=== PATIENT | male | born 1960 | race Caucasian/White ===

== ENCOUNTER → 2019-06-19 | Outpatient (CLI) | payer BC ==
--- NOTE | 2019-06-19 20:07 | EST ---
EXERCISE STRESS DATE OF SERVICE: 06/19/2019 AGE: 59 SEX: Male. HT: 70 WT: 210 PROTOCOL: Jarrell STAGE: 3 DURATION OF EXERCISE: 7:00 HEART RATE REST: 75 BLOOD PRESSURE REST: 143/102 MAXIMUM HEART RATE ACHIEVED: 147 MAXIMUM BLOOD PRESSURE: 208/74 85% MPHR: 139 100% MPHR: 163 METS: 8.5 INDICATIONS: CAD CLINICAL INFORMATION: Baseline EKG revealed normal sinus rhythm without significant ST-T changes. Patient walked on standard Jarrell protocol for 7 minutes and achieved a maximal heart rate of 147 beats per minute, which is more than 85% of predicted maximal. Peak blood pressure was 208/74. EKG did not reveal any ST-segment changes to indicate ischemia. There was no angina or arrhythmia. By EKG criteria, this is a negative stress test with fair exercise capacity. MMODL / IJN: [id number] /
== END ==
LOC: RADNMMAIN 10:36
PROVIDERS: ATTEND Nuclear Medicine Nuclear Cardiology
DX: I25.10 Atherosclerotic heart disease of native coronary artery without angina pectoris (principal)
CPT/HCPCS: 93017

== ENCOUNTER 2021-10-22 15:29 | Inpatient (IN) | payer BC, OTHER ==
--- NOTE | 2021-10-22 16:06 | ED ---
General Adult HPI - General Chief complaint: Shortness of Breath Stated complaint: SOB Time Seen by Provider: 10/22/21 15:35 Source: patient Mode of arrival: EMS Limitations: no limitations - History of Present Illness Initial comments: Dictation was produced using [employer] dictation software. please excuse any grammatical, word or spelling errors. Chief Complaint: 61-year-old male past medical history of coronary artery disease presents to the emergency Department for hypoxia and covid symptoms History of Present Illness: Patient is a 61-year-old nice has past medical history of hypertension and heart attack. Patient states that he's been symptomatically with URI symptoms and anosmia for approximately one week. Patient went to the urgent care today for Covid test phthisis symptoms have been progressively worsening. He was found to be hypoxic in the 80 percents at the urgent care. He was sent to the emergency department. Patient is not vaccinated. He does have symptoms of weakness myalgias and fatigue. The ROS documented in this emergency department record has been reviewed and confirmed by me. Those systems with pertinent positive or negative responses have been documented in the HPI. All other systems are other negative and/or noncontributory. PHYSICAL EXAM: General Impression: Alert and oriented x3, not in acute distress HEENT: Normocephalic atraumatic, extra-ocular movements intact, pupils equal and reactive to light bilaterally, mucous membranes moist. Cardiovascular: Heart regular rate and rhythm Chest: Able to complete full sentences, no retractions, no tachypnea Abdomen: abdomen soft, non-tender, non-distended, no organomegaly Musculoskeletal: Pulses present and equal in all extremities, no peripheral edema Motor: no focal deficits noted Neurological: CN II-XII grossly intact, no focal motor or sensory deficits noted Skin: Intact with no visualized rashes Psych: Normal affect and mood ED course: 61-year-old male presents to the emergency department for hypoxia. He has classical symptoms for Covid 19. Vital signs upon arrival shows 91% on room air, temperature of 99.7, rest of vital signs within acceptable limits. Patient's well-appearing at the bedside. Laboratory evaluation obtained. CBC unremarkable. Coag panel is negative. D- dimer 0.8. Metabolic panel shows sodium 128. Bicarb of 20. Rest of labs within acceptable limits. Patient is positive for COVID-19. Chest x-ray shows bilateral multifocal pneumonia consistent with COVID-19. Patient hypoxic at the bedside into the mid to low 80s. he is placed on nasal cannula. Patient given 10 mg of IV Decadron. He'll be admitted with consultation to pulmonology. - Related Data Home Medications Medication Instructions Recorded Confirmed Aspirin EC [Ecotrin Low Dose] 81 mg PO HS 10/22/21 10/22/21 Multivitamins, Thera [Multivitamin 1 tab PO HS 10/22/21 10/22/21 (formulary)] Rosuvastatin [Crestor] 20 mg PO HS 10/22/21 10/22/21 atenoloL [Tenormin] 25 mg PO HS 10/22/21 10/22/21 Allergies Allergy/AdvReac Type Severity Reaction Status Date / Time iodine Allergy Unknown Verified 10/22/21 17:04 Penicillins Allergy Unknown Verified 10/22/21 17:04 Review of Systems ROS Statement: Those systems with pertinent positive or pertinent negative responses have been documented in the HPI. ROS Other: All systems not noted in ROS Statement are negative. Past Medical History Past Medical History: Hypertension, Myocardial Infarction ([place]) History of Any Multi-Drug Resistant Organisms: None Reported Past Surgical History: Heart Catheterization With Stent Past Psychological History: No Psychological Hx Reported Smoking Status: Never smoker Past Alcohol Use History: None Reported Past Drug Use History: None Reported General Exam Limitations: no limitations Course Vital Signs 10/22/21 10/22/21 10/22/21 15:31 15:35 16:10 Temperature 99.7 F H Pulse Rate 94 84 Respiratory 16 16 16 Rate Blood Pressure 120/82 109/66 O2 Sat by Pulse 91 L 89 L Oximetry Medical Decision Making - Lab Data Result diagrams: 10/22/21 16:07 10/22/21 16:07 Lab Results 10/22/21 10/22/21 10/22/21 Range/Units 16:07 16:07 16:07 WBC 10.4 (3.8-10.6) k/uL RBC 4.57 (4.30-5.90) m/uL Hgb 13.5 (13.0-17.5) gm/dL Hct 38.0 L (39.0-53.0) % MCV 83.0 (80.0-100.0) fL MCH 29.5 (25.0-35.0) pg MCHC 35.6 (31.0-37.0) g/dL RDW 12.3 (11.5-15.5) % Plt Count 204 (150-450) k/uL MPV 8.2 Neutrophils % 74 % Lymphocytes % 21 % Monocytes % 3 % Eosinophils % 0 % Basophils % 0 % Neutrophils # 7.7 (1.3-7.7) k/uL Lymphocytes # 2.2 (1.0-4.8) k/uL Monocytes # 0.3 (0-1.0) k/uL Eosinophils # 0.0 (0-0.7) k/uL Basophils # 0.0 (0-0.2) k/uL PT 10.4 (9.0-12.0) sec INR 1.0 (<1.2) APTT 22.3 (22.0-30.0) sec D-Dimer 0.80 H (<0.60) mg/L FEU Sodium (137-145) mmol/L Potassium (3.5-5.1) mmol/L Chloride (98-107) mmol/L Carbon Dioxide (22-30) mmol/L Anion Gap mmol/L BUN (9-20) mg/dL Creatinine (0.66-1.25) mg/dL Est GFR (CKD-EPI)AfAm (>60 ml/min/1.73 sqM) Est GFR (CKD-EPI)NonAf (>60 ml/min/1.73 sqM) Glucose (74-99) mg/dL Calcium (8.4-10.2) mg/dL Magnesium (1.6-2.3) mg/dL C-Reactive Protein (<1.0) mg/dL Coronavirus (PCR) Detected A (Not Detectd) 10/22/21 Range/Units 16:07 WBC (3.8-10.6) k/uL RBC (4.30-5.90) m/uL Hgb (13.0-17.5) gm/dL Hct (39.0-53.0) % MCV (80.0-100.0) fL MCH (25.0-35.0) pg MCHC (31.0-37.0) g/dL RDW (11.5-15.5) % Plt Count (150-450) k/uL MPV Neutrophils % % Lymphocytes % % Monocytes % % Eosinophils % % Basophils % % Neutrophils # (1.3-7.7) k/uL Lymphocytes # (1.0-4.8) k/uL Monocytes # (0-1.0) k/uL Eosinophils # (0-0.7) k/uL Basophils # (0-0.2) k/uL PT (9.0-12.0) sec INR (<1.2) APTT (22.0-30.0) sec D-Dimer (<0.60) mg/L FEU Sodium 128 L (137-145) mmol/L Potassium 3.5 (3.5-5.1) mmol/L Chloride 99 (98-107) mmol/L Carbon Dioxide 20 L (22-30) mmol/L Anion Gap 9 mmol/L BUN 19 (9-20) mg/dL Creatinine 0.87 (0.66-1.25) mg/dL Est GFR (CKD-EPI)AfAm >90 (>60 ml/min/1.73 sqM) Est GFR (CKD-EPI)NonAf >90 (>60 ml/min/1.73 sqM) Glucose 128 H (74-99) mg/dL Calcium 8.0 L (8.4-10.2) mg/dL Magnesium 2.4 H (1.6-2.3) mg/dL C-Reactive Protein 7.5 H (<1.0) mg/dL Coronavirus (PCR) (Not Detectd) Disposition Clinical Impression: COVID-19 Disposition: ADMITTED IP TO THIS HOSP Condition: Fair Referrals: Collin Hughes MD [Primary Care Provider] - 1-2 days
[2021-10-22 16:17] LABS: Basophils % (A) 0 %; Eosinophils % (A) 0 %; HGB 13.5 gm/dL (13.0-17.5); Lymphocytes # (A) 2.2 k/uL (1.0-4.8); Lymphocytes % (A) 21 %; MCH 29.5 pg (25.0-35.0); MCHC 35.6 g/dL (31.0-37.0); Mean Platelet Volume 8.2; Monocytes # (A) 0.3 k/uL (0-1.0); Monocytes % (A) 3 %; Neutrophils # (A) 7.7 k/uL (1.3-7.7); Neutrophils % (A) 74 %; Platelet Count 204 k/uL (150-450); RBC 4.57 m/uL (4.30-5.90); RDW 12.3 % (11.5-15.5); WBC 10.4 k/uL (3.8-10.6)
--- NOTE | 2021-10-22 16:23 | XR ---
EXAMINATION TYPE: XR chest 1V portable DATE OF EXAM: 10/22/2021 COMPARISON: NONE HISTORY: Fever. Shortness of breath. Loss of taste and smell. TECHNIQUE: Single AP portable frontal upright view of the chest is obtained. FINDINGS: There are bilateral multifocal peripheral increased opacities. Somewhat low lung volumes. The cardiac silhouette size is mildly enlarged. The osseous structures are intact. Overlying EKG le ads. IMPRESSION: Bilateral multifocal predominantly peripheral opacities consistent with covid-19 infecti on.
[2021-10-22 16:33] LABS: African American GFR (CKD) >90 (>60 ml/min/1.73 sqM); Anion Gap 9 mmol/L; Blood Urea Nitrogen 19 mg/dL (9-20); C Reactive Protein 7.5 mg/dL (<1.0); Carbon Dioxide 20 mmol/L (22-30); Chloride 99 mmol/L (98-107); Glucose 128 mg/dL (74-99); Magnesium 2.4 mg/dL (1.6-2.3); Non-African American GFR(CKD) >90 (>60 ml/min/1.73 sqM); Potassium 3.5 mmol/L (3.5-5.1); Sodium 128 mmol/L (137-145)
[2021-10-22] MEDS ORDERED: SODIUM CHLORIDE 0.9% 500 ML 500 ML IV STA (17:05)
[2021-10-22 17:07] LABS: Partial Thromboplastin Time 22.3 sec (22.0-30.0); Prothrombin Time 10.4 sec (9.0-12.0)
[2021-10-22] MEDS ORDERED: DEXAMETHASONE SOD PHOSPHATE 10 MG/ML 1 ML VIAL IV STA (17:17)
[2021-10-22] MEDS ORDERED: ONDANSETRON 4 MG/2 ML VIAL IVP PRN (17:19)
[2021-10-22] MEDS ORDERED: NALOXONE 0.4 MG/ML 1 ML VIAL IV PRN (17:19)
[2021-10-22] MEDS ORDERED: ACETAMINOPHEN TAB 325 MG TAB PO PRN (17:19)
[2021-10-22] MEDS ORDERED: REMDESIVIR 200 MG in SODIUM CHLORIDE 0.9% 250 ML IVPB ONE (19:00)
--- NOTE | 2021-10-22 19:43 | P.CNPUL ---
History of Present Illness Consult date: 10/22/21 Reason for consult: dyspnea, pneumonia History of present illness: 61-year-old male patient is currently hospitalized for COVID 19 related pneumo kimber. The patient initially developed symptoms of URI and he lost his smell approximately a week ago. He went to an urgent care any tested positive. His symptoms progressively got worse especially the respiratory symptoms and the patient was found to be hypoxic in the emergency department with an initial pulse ox in the 80s. He was placed on oxygen. This is vaccinated individual. At the same time, the patient was complaining of generalized weakness and fatigue and myalgias and tiredness and diminished appetite. In the emergency, the patient's vitals were stable. He was hypoxic. He was placed on oxygen. The blood work showed a sodium level of 128, serum bicarb was 20, chloride was 99, creatinine was 0.8, glucose was 138, illness count is 10.4, hemoglobin is at 15.5, his electrolytes showed a potassium level of 3.5, calcium was 8.0, his d- dimer was 0.8, inflammatory markers are still pending for now. [place] was attempted 0.4. Chest x-ray revealed bilateral pulmonary infiltrates consistent with COVID 19 infection. The patient is currently on IV fluids of normal saline at the rate of 75 mL's an hour. He was given Decadron. He will be started also on Lovenox for DVT prophylaxis. Milligrams subcu daily basis. Review of Systems Constitutional: Reports fatigue, Reports weakness Eyes: denies as per HPI, denies blurred vision, denies bulging eye, denies decreased vision, denies diplopia, denies discharge, denies dry eye, denies irritation, denies itching, denies pain, denies photophobia, denies loss of p eripheral vision, denies loss of vision, denies tunnel vision/blind spots Ears: deny: decreased hearing, ear discharge, earache, tinnitus Ears, nose, mouth and throat: Reports as per HPI Breasts: absent: as per HPI, gynecomastia Cardiovascular: Reports decreased exercise tolerance, Reports dyspnea on exertion Respiratory: Reports cough, Reports dyspnea Gastrointestinal: Reports as per HPI, Reports loss of appetite Genitourinary: Reports as per HPI Musculoskeletal: Reports as per HPI Musculoskeletal: absent: ankle pain, ankle stiffness, ankle swelling, as per HPI, elbow pain, elbow stiffness, elbow swelling, foot pain, foot stiffness, foot swelling, hand pain, hand stiffness, hand swelling, hip pain, hip stiffness, hip swelling, knee pain, knee stiffness, knee swelling, shoulder pain, shoulder stiffness, shoulder swelling, wrist pain, wrist stiffness, wrist swelling Integumentary: Reports as per HPI Neurological: Reports as per HPI, Reports change in smell/taste Psychiatric: Reports as per HPI Endocrine: Reports as per HPI Hematologic/Lymphatic: Reports as per HPI Allergic/Immunologic: Reports as per HPI Past Medical History Past Medical History: Hypertension, Myocardial Infarction ([place]) History of Any Multi-Drug Resistant Organisms: None Reported Past Surgical History: Heart Catheterization With Stent Past Psychological History: No Psychological Hx Reported Smoking Status: Never smoker Past Alcohol Use History: None Reported Past Drug Use History: None Reported Medications and Allergies Home Medications Medication Instructions Recorded Confirmed Type Aspirin EC [Ecotrin Low Dose] 81 mg PO HS 10/22/21 10/22/21 History Multivitamins, Thera [Multivitamin 1 tab PO HS 10/22/21 10/22/21 History (formulary)] Rosuvastatin [Crestor] 20 mg PO HS 10/22/21 10/22/21 History atenoloL [Tenormin] 25 mg PO HS 10/22/21 10/22/21 History Allergies Allergy/AdvReac Type Severity Reaction Status Date / Time iodine Allergy Unknown Verified 10/22/21 17:04 Penicillins Allergy Unknown Verified 10/22/21 17:04 Physical Exam Vitals: Vital Signs Temp Pulse Resp BP Pulse Ox 10/22/21 16:10 84 16 109/66 89 L 10/22/21 15:35 16 91 L 10/22/21 15:31 99.7 F H 94 16 120/82 Intake and Output 10/22/21 10/22/21 10/22/21 06:59 14:59 22:59 Other: Weight 92.079 kg General Impression: Alert and oriented x3, not in acute distress, pulse ox is 89% on room in oxygen and patient will be placed on 2 L about 2 by nasal cannula HEENT: Normocephalic atraumatic, extra-ocular movements intact, pupils equal and reactive to light bilaterally, mucous membranes moist. Cardiovascular: Heart regular rate and rhythm Chest: Able to complete full sentences, no retractions, no tachypnea, limited crack in lung bases bilaterally Abdomen: abdomen soft, non-tender, non-distended, no organomegaly Musculoskeletal: Pulses present and equal in all extremities, no peripheral edema Motor: no focal deficits noted Neurological: CN II-XII grossly intact, no focal motor or sensory deficits noted Skin: Intact with no visualized rashes Psych: Normal affect and mood Results - Laboratory Findings CBC and BMP: 10/22/21 16:07 10/22/21 16:07 PT/INR, D-dimer PT 10.4 sec (9.0-12.0) 10/22/21 16:07 INR 1.0 (<1.2) 10/22/21 16:07 D-Dimer 0.80 mg/L FEU (<0.60) H 10/22/21 16:07 Abnormal lab findings: Abnormal Labs 10/22/21 10/22/21 10/22/21 16:07 16:07 16:07 Hct 38.0 L D-Dimer 0.80 H Sodium Carbon Dioxide Glucose Calcium Magnesium C-Reactive Protein Coronavirus (PCR) Detected A 10/22/21 16:07 Hct D-Dimer Sodium 128 L Carbon Dioxide 20 L Glucose 128 H Calcium 8.0 L Magnesium 2.4 H C-Reactive Protein 7.5 H Coronavirus (PCR) - Diagnostic Findings Chest x-ray: image reviewed Assessment and Plan Plan: 1 acute COVID 19 related pneumonia with secondary shortness of breath, symptoms started approximately 7 days ago and the patient is an progressively getting worse. Presented to the hospital because of generalized constitutional symptoms and hypoxemia. 2 acute hypoxic respiratory failure and the patient has limited infiltration bilaterally consistent with COVID 19 related pneumonia 3 shortness of breath secondary to above 4 hypovolemic hyponatremia secondary to above 5 history of coronary artery disease currently inactive in stable 6 hyperlipidemia maintained on Crestor no patient basis Plan Titrate oxygen flow to maintain a saturation above 90% Start the patient on Decadron 6 mg IV every 24 hours Remdesivir per protocol Start the patient on Lovenox 40 milligrams subcu for DVT prophylaxis Check inflammatory markers including of this year. Pro-calcitonin level Multivitamins including vitamin C and vitamin E and zinc Resume all medications Chest x-ray was reviewed D-dimer is low We'll continue to follow
[2021-10-22] MEDS: ENOXAPARIN 40 MG/0.4 ML SYRINGE SQ SCH (19:49)
[2021-10-22] MEDS: SODIUM CHLORIDE 0.9% 1,000 ML IV SCH (19:50)
[2021-10-22] MEDS: dexAMETHasone 2 MG TAB PO SCH ×2 (19:50)
[2021-10-22] MEDS: CHOLECALCIFEROL 25 MCG (1000 IU) TABLET PO SCH (19:50)
[2021-10-22] MEDS: ZINC SULFATE 220 MG CAP PO SCH (19:50)
[2021-10-23] MEDS: ATORVASTATIN 40 MG TAB PO SCH ×2 (00:04→20:17)
[2021-10-23] MEDS: MULTIVITAMINS, THERA 1 EACH TAB PO SCH ×2 (00:04→20:17)
[2021-10-23] MEDS: ASCORBIC ACID 500 MG TAB PO SCH ×3 (00:04→20:17)
[2021-10-23] MEDS: ASPIRIN 81 MG PO SCH ×2 (00:04→20:17)
[2021-10-23] MEDS: atenoloL 25 MG TAB PO SCH ×2 (00:04→22:03)
[2021-10-23] MEDS: ENOXAPARIN 40 MG/0.4 ML SYRINGE SQ SCH (10:03)
[2021-10-23] MEDS: CHOLECALCIFEROL 25 MCG (1000 IU) TABLET PO SCH (10:03)
[2021-10-23] MEDS: dexAMETHasone 2 MG TAB PO SCH (10:03)
[2021-10-23] MEDS: ZINC SULFATE 220 MG CAP PO SCH (10:03)
--- NOTE | 2021-10-23 10:55 | P.PN ---
Subjective Progress Note Date: 10/23/21 61-year-old male patient is currently hospitalized for COVID 19 related pneumonia. The patient initially developed symptoms of URI and he lost his smell approximately a week ago. He went to an urgent care any tested positive. His symptoms progressively got worse especially the respiratory symptoms and the patient was found to be hypoxic in the emergency department with an initial pulse ox in the 80s. He was placed on oxygen. This is vaccinated individual. At the same time, the patient was complaining of generalized weakness and fatigue and myalgias and tiredness and diminished appetite. In the emergency, the patient's vitals were stable. He was hypoxic. He was placed on oxygen. The blood work showed a sodium level of 128, serum bicarb was 20, chloride was 99, creatinine was 0.8, glucose was 138, illness count is 10.4, hemoglobin is at 15.5, his electrolytes showed a potassium level of 3.5, calcium was 8.0, his d- dimer was 0.8, inflammatory markers are still pending for now. [place] was attempted 0.4. Chest x-ray revealed bilateral pulmonary infiltrates consistent with COVID 19 infection. The patient is currently on IV fluids of normal saline at the rate of 75 mL's an hour. He was given Decadron. He will be started also on Lovenox for DVT prophylaxis. Milligrams subcu daily basis. 10/23/2021, the patient is feeling slightly better. Oxygenation remains unchanged and the patient remains on oxygen at 4 L of oxygen by nasal cannula. In terms of his treatment, the patient was started on a combination of Remdesivir and Decadron yesterday. He was also placed on Lovenox. Blood work from today shows a LDH level of 1305, CRP is at 7.5, d-dimer 00.6. No other issues for now. He is still awaiting a bed. He is on IV fluids with normal saline at the rate of 75 mL an hour. The sodium level at the time of admission was at 128 and this is to be followed up. Objective - Vital Signs Vital signs: Vital Signs Temp 98.3 F 10/23/21 06:04 Pulse 80 10/23/21 06:04 Resp 18 10/23/21 06:04 BP 113/71 10/23/21 06:04 Pulse Ox 93 L 10/23/21 06:04 Intake & Output 10/22/21 10/23/21 10/23/21 18:59 06:59 18:59 Weight 92.079 kg 92.079 kg - Exam General Impression: Alert and oriented x3, not in acute distress, pulse ox is 89% on room in oxygen and patient will be placed on 2 L about 2 by nasal cannula HEENT: Normocephalic atraumatic, extra-ocular movements intact, pupils equal and reactive to light bilaterally, mucous membranes moist. Cardiovascular: Heart regular rate and rhythm Chest: Able to complete full sentences, no retractions, no tachypnea, limited crack in lung bases bilaterally Abdomen: abdomen soft, non-tender, non-distended, no organomegaly Musculoskeletal: Pulses present and equal in all extremities, no peripheral edema Motor: no focal deficits noted Neurological: CN II-XII grossly intact, no focal motor or sensory deficits noted Skin: Intact with no visualized rashes Psych: Normal affect and mood - Labs CBC & Chem 7: 10/22/21 16:07 10/22/21 16:07 Labs: Abnormal Lab Results - Last 24 Hours (Table) 10/22/21 10/22/21 10/22/21 Range/Units 16:07 16:07 16:07 Hct 38.0 L (39.0-53.0) % D-Dimer 0.80 H (<0.60) mg/L FEU Sodium (137-145) mmol/L Carbon Dioxide (22-30) mmol/L Glucose (74-99) mg/dL Calcium (8.4-10.2) mg/dL Magnesium (1.6-2.3) mg/dL Lactate Dehydrogenase (313-618) U/L C-Reactive Protein (<1.0) mg/dL Coronavirus (PCR) Detected A (Not Detectd) 10/22/21 10/22/21 10/23/21 Range/Units 16:07 18:51 07:23 Hct (39.0-53.0) % D-Dimer 0.67 H (<0.60) mg/L FEU Sodium 128 L (137-145) mmol/L Carbon Dioxide 20 L (22-30) mmol/L Glucose 128 H (74-99) mg/dL Calcium 8.0 L (8.4-10.2) mg/dL Magnesium 2.4 H (1.6-2.3) mg/dL Lactate Dehydrogenase 1305 H (313-618) U/L C-Reactive Protein 7.5 H (<1.0) mg/dL Coronavirus (PCR) (Not Detectd) Assessment and Plan Plan: 1 acute COVID 19 related pneumonia with secondary shortness of breath, symptoms started approximately 7 days ago and the patient is an progressively getting worse. Presented to the hospital because of generalized constitutional symptoms and hypoxemia. The patient is feeling slightly better with the current treatment of Remdesivir and Decadron. No new complaints. He is on IV fluids. Follow-up electrodes are still pending. 2 acute hypoxic respiratory failure and the patient has limited infiltration bilaterally consistent with COVID 19 related pneumonia 3 shortness of breath secondary to above 4 hypovolemic hyponatremia secondary to above 5 history of coronary artery disease currently inactive in stable 6 hyperlipidemia maintained on Crestor no patient basis Plan Titrate oxygen flow to maintain a saturation above 90% Decadron 6 mg IV every 24 hours Remdesivir per protocol, day #2 of treatment Start the patient on Lovenox 40 milligrams subcu for DVT prophylaxis Check inflammatory markers including of this year. Pro-calcitonin level Multivitamins including vitamin C and vitamin E and zinc Resume all medications Chest x-ray was reviewed D-dimer is low We'll continue to follow
[2021-10-23 11:01] LABS: HCT 39.6 % (39.6-50.0); MCH 28.8 pg (27.0-32.0); MCHC 32.8 g/dL (32.0-37.0); MCV 87.8 fL (80.0-97.0); Platelet Count 237 X 10*3/uL (140-440); RBC 4.51 X 10*6/uL (4.40-5.60); RDW 13.4 % (11.5-14.5)
[2021-10-23 11:38] LABS: African American GFR (CKD) 105.6 (60.0-200.0); Albumin 3.4 g/dL (3.8-4.9); Albumin/Globulin Ratio 1.43 (1.60-3.17); Anion Gap 13.8 mmol/L (10.00-18.00); BUN/Creat Ratio 18.76 Ratio (12.00-20.00); Blood Urea Nitrogen 17.2 mg/dL (9.0-27.0); C Reactive Protein 9.9 mg/dL (0.00-0.80); Carbon Dioxide 21.6 mmol/L (20.0-27.5); Globulin 2.3 g/dL (1.6-3.3); Non-African American GFR(CKD) 91.1 (60.0-200.0); Total Bilirubin 0.3 mg/dL (0.30-1.20); Total Protein 5.7 g/dL (6.2-8.2)
[2021-10-23 11:55] LABS: Basophils # (A) 0.01 X 10*3/uL (0.00-0.10); Basophils % (A) 0.1 %; Eosinophils # (A) 0 X 10*3/uL (0.04-0.35); Eosinophils % (A) 0 %; Lymphocytes # (A) 2.72 X 10*3/uL (0.90-5.00); Lymphocytes % (A) 26.7 %; Monocytes # (A) 0.18 X 10*3/uL (0.20-1.00); Monocytes % (A) 1.8 %; Neutrophils # (A) 7.23 X 10*3/uL (1.80-7.70); Neutrophils % (A) 70.8 %
--- NOTE | 2021-10-23 12:06 | P.HPIM ---
History of Present Illness Patient is a 61-year-old male came in with complaints of shortness of breath cough and loss of sensation of smell which started about a week ago. Patient is found to have Covid 19 infection. Patient is presently on 4 L of oxygen patient d-dimer is around 0.8 patient is a significantly tired with myalgias. Patient is not vaccinated patient is presently on the multivitamin supplementations and Decadron along with Lovenox. REVIEW OF SYSTEMS: CONSTITUTIONAL: As mentioned in HPI HEENT: No recent visual problems or hearing problems. Denied any sore throat. CARDIOVASCULAR: No chest pain, orthopnea, PND, no palpitations, no syncope. PULMONARY: No shortness of breath, no cough, no hemoptysis. GASTROINTESTINAL: No diarrhea, no nausea, no vomiting, no abdominal pain. NEUROLOGICAL: No headaches, no weakness, no numbness. HEMATOLOGICAL: Denies any bleeding or petechiae. GENITOURINARY: Denies any burning micturition, frequency, or urgency. MUSCULOSKELETAL/RHEUMATOLOGICAL: Denies any joint pain, swelling, or any muscle pain. ENDOCRINE: Denies any polyuria or polydipsia. The rest of the 14-point review of systems is negative. PHYSICAL EXAMINATION: GENERAL: The patient is alert and oriented x3, not in any acute distress. Well developed, well nourished. HEENT: Pupils are round and equally reacting to light. EOMI. No scleral icterus. No conjunctival pallor. Normocephalic, atraumatic. No pharyngeal erythema. No thyromegaly. CARDIOVASCULAR: S1 and S2 present. No murmurs, rubs, or gallops. PULMONARY: Chest is clear to auscultation, no wheezing or crackles. ABDOMEN: Soft, nontender, nondistended, normoactive bowel sounds. No palpable organomegaly. MUSCULOSKELETAL: No joint swelling or deformity. EXTREMITIES: No cyanosis, clubbing, or pedal edema. NEUROLOGICAL: Gross neurological examination did not reveal any focal deficits. SKIN: No rashes. Assessment and plan -Acute hypoxic respiratory failure secondary to Covid 19 pneumonia, continue with Decadron, Covid vitamin supplementation. Patient is also on Remdesivir -Covid 19 infection -Hypovolemic hyponatremia: Continue with IV fluids -Ray artery disease -Hypertension DVT prophylaxis: Lovenox Past Medical History Past Medical History: Coronary Artery Disease (CAD), Hypertension, Myocardial Infarction ([place]) Last Myocardial Infarction Date:: 2010 History of Any Multi-Drug Resistant Organisms: None Reported Past Surgical History: Heart Catheterization, Heart Catheterization With Stent Additional Past Surgical History / Comment(s): colonoscopy Past Anesthesia/Blood Transfusion Reactions: No Reported Reaction Date of Last Stent Placement:: 2010 Smoking Status: Never smoker - Past Family History Mother Family Medical History: No Reported History Additional Family Medical History / Comment(s): Mother is healthy Father Family Medical History: Myocardial Infarction ([place]) Additional Family Medical History / Comment(s): Father of a [place] at the age of 80. Medications and Allergies Home Medications Medication Instructions Recorded Confirmed Type Aspirin EC [Ecotrin Low Dose] 81 mg PO HS 10/22/21 10/22/21 History Multivitamins, Thera [Multivitamin 1 tab PO HS 10/22/21 10/22/21 History (formulary)] Rosuvastatin [Crestor] 20 mg PO HS 10/22/21 10/22/21 History atenoloL [Tenormin] 25 mg PO HS 10/22/21 10/22/21 History Allergies Allergy/AdvReac Type Severity Reaction Status Date / Time iodine Allergy Unknown Verified 10/22/21 17:04 Penicillins Allergy Unknown Verified 10/22/21 17:04 Physical Exam Vitals: Vital Signs Temp Pulse Resp BP Pulse Ox 10/23/21 06:04 98.3 F 80 18 113/71 93 L 10/23/21 03:00 74 18 117/80 94 L 10/23/21 00:00 98.9 F 82 18 136/90 95 10/22/21 19:50 98.9 F 87 20 141/86 95 10/22/21 16:15 94 L 10/22/21 16:10 84 16 109/66 89 L 10/22/21 15:35 16 91 L 10/22/21 15:31 99.7 F H 94 16 120/82 Intake and Output 10/22/21 10/23/21 10/23/21 22:59 06:59 14:59 Other: Weight 92.079 kg 92.079 kg Results CBC & Chem 7: 10/23/21 07:23 10/23/21 07:23 Labs: Abnormal Lab Results - Last 24 Hours (Table) 10/22/21 10/22/21 10/22/21 Range/Units 16:07 16:07 16:07 WBC (4.50-10.00) X 10*3/uL Hct 38.0 L (39.0-53.0) % Immature Gran # (0.00-0.04) X 10*3/uL Monocytes # (0.20-1.00) X 10*3/uL Eosinophils # (0.04-0.35) X 10*3/uL D-Dimer 0.80 H (<0.60) mg/L FEU Sodium (137-145) mmol/L Carbon Dioxide (22-30) mmol/L Glucose (74-99) mg/dL Calcium (8.4-10.2) mg/dL Magnesium (1.6-2.3) mg/dL AST (14-35) U/L ALT (10-49) U/L Lactate Dehydrogenase (313-618) U/L C-Reactive Protein (<1.0) mg/dL Total Protein (6.2-8.2) g/dL Albumin (3.8-4.9) g/dL Albumin/Globulin Ratio (1.60-3.17) g/dL Coronavirus (PCR) Detected A (Not Detectd) 10/22/21 10/22/21 10/23/21 Range/Units 16:07 18:51 07:23 WBC 10.20 H (4.50-10.00) X 10*3/uL Hct (39.0-53.0) % Immature Gran # 0.06 H (0.00-0.04) X 10*3/uL Monocytes # 0.18 L (0.20-1.00) X 10*3/uL Eosinophils # 0 L (0.04-0.35) X 10*3/uL D-Dimer (<0.60) mg/L FEU Sodium 128 L (137-145) mmol/L Carbon Dioxide 20 L (22-30) mmol/L Glucose 128 H (74-99) mg/dL Calcium 8.0 L (8.4-10.2) mg/dL Magnesium 2.4 H (1.6-2.3) mg/dL AST (14-35) U/L ALT (10-49) U/L Lactate Dehydrogenase 1305 H (313-618) U/L C-Reactive Protein 7.5 H (<1.0) mg/dL Total Protein (6.2-8.2) g/dL Albumin (3.8-4.9) g/dL Albumin/Globulin Ratio (1.60-3.17) g/dL Coronavirus (PCR) (Not Detectd) 10/23/21 10/23/21 Range/Units 07:23 07:23 WBC (4.50-10.00) X 10*3/uL Hct (39.0-53.0) % Immature Gran # (0.00-0.04) X 10*3/uL Monocytes # (0.20-1.00) X 10*3/uL Eosinophils # (0.04-0.35) X 10*3/uL D-Dimer 0.67 H (<0.60) mg/L FEU Sodium (137-145) mmol/L Carbon Dioxide (22-30) mmol/L Glucose 161 H (74-99) mg/dL Calcium 8.0 L (8.4-10.2) mg/dL Magnesium (1.6-2.3) mg/dL AST 63 H (14-35) U/L ALT 61 H (10-49) U/L Lactate Dehydrogenase 473 H (313-618) U/L C-Reactive Protein 9.90 H (<1.0) mg/dL Total Protein 5.7 L (6.2-8.2) g/dL Albumin 3.4 L (3.8-4.9) g/dL Albumin/Globulin Ratio 1.43 L (1.60-3.17) g/dL Coronavirus (PCR) (Not Detectd) Thrombosis Risk Factor Assmnt - Choose All That Apply Any of the Below Risk Factors Present?: Yes Each Factor Represents 1 point: Age 41-60 years, Obesity (BMI >25), Serious lung disease incl. pneumonia (< 1month) Other Risk Factors: No Other congenital or acquired thrombophilia - If yes, enter type in comment: No Thrombosis Risk Factor Assessment Total Risk Factor Score: 3 Thrombosis Risk Factor Assessment Level: Moderate Risk
[2021-10-23] MEDS: SODIUM CHLORIDE 0.9% 1,000 ML IV SCH ×2 (14:01→20:21)
[2021-10-23] MEDS: REMDESIVIR 100 MG in SODIUM CHLORIDE 0.9% 250 ML IVPB SCH (17:18)
--- NOTE | 2021-10-24 07:39 | XR ---
EXAMINATION TYPE: XR chest 1V portable DATE OF EXAM: 10/24/2021 COMPARISON: 11/09/2021 HISTORY: Covid TECHNIQUE: Single frontal view of the chest is obtained. FINDINGS: Mild to moderate interstitial and partial airspace opacity bilaterally left greater than r ight. There is been no significant interval change since prior study. Heart and pulmonary vasculature unremarkable and stable. The osseous structures are intact. There is no pneumothorax or pleural effusion. IMPRESSION: No significant interval change in the bilateral lung infiltrates.
[2021-10-24] MEDS: dexAMETHasone 2 MG TAB PO SCH (09:28)
[2021-10-24] MEDS: ENOXAPARIN 40 MG/0.4 ML SYRINGE SQ SCH ×2 (09:28→20:25)
[2021-10-24] MEDS: ZINC SULFATE 220 MG CAP PO SCH (09:28)
[2021-10-24] MEDS: ASCORBIC ACID 500 MG TAB PO SCH ×2 (09:29→20:26)
[2021-10-24] MEDS: CHOLECALCIFEROL 25 MCG (1000 IU) TABLET PO SCH (09:29)
[2021-10-24 10:33] LABS: Basophils # (A) 0.1 k/uL (0-0.2); Basophils % (A) 1 %; Eosinophils % (A) 0 %; HCT 39.5 % (39.0-53.0); HGB 13.5 gm/dL (13.0-17.5); Lymphocytes # (A) 2.5 k/uL (1.0-4.8); Lymphocytes % (A) 20 %; MCH 29.5 pg (25.0-35.0); MCHC 34.1 g/dL (31.0-37.0); MCV 86.4 fL (80.0-100.0); Mean Platelet Volume 9.4; Monocytes # (A) 0.8 k/uL (0-1.0); Monocytes % (A) 6 %; Neutrophils # (A) 8.9 k/uL (1.3-7.7); Neutrophils % (A) 71 %; Platelet Count 318 k/uL (150-450); RBC 4.57 m/uL (4.30-5.90); RDW 12.9 % (11.5-15.5); WBC 12.4 k/uL (3.8-10.6)
[2021-10-24 11:30] LABS: ALT 86 U/L (4-49); AST 75 U/L (17-59); African American GFR (CKD) >90 (>60 ml/min/1.73 sqM); Albumin 2.9 g/dL (3.5-5.0); Alkaline Phosphatase 54 U/L (38-126); Anion Gap 10 mmol/L; Blood Urea Nitrogen 25 mg/dL (9-20); C Reactive Protein 4.1 mg/dL (<1.0); Calcium 7.8 mg/dL (8.4-10.2); Carbon Dioxide 20 mmol/L (22-30); Chloride 108 mmol/L (98-107); Globulin 2.9 g/dL; Glucose 180 mg/dL (74-99); LDH 1424 U/L (313-618); Non-African American GFR(CKD) >90 (>60 ml/min/1.73 sqM); Potassium 4.1 mmol/L (3.5-5.1); Sodium 138 mmol/L (137-145); Total Bilirubin 0.4 mg/dL (0.2-1.3); Total Protein 5.8 g/dL (6.3-8.2)
[2021-10-24] MEDS: SODIUM CHLORIDE 0.9% 1,000 ML IV SCH ×2 (11:33→23:52)
--- NOTE | 2021-10-24 14:59 | P.PN ---
Subjective Progress Note Date: 10/24/21 61-year-old male patient is currently hospitalized for COVID 19 related pneumonia. The patient initially developed symptoms of URI and he lost his smell approximately a week ago. He went to an urgent care any tested positive. His symptoms progressively got worse especially the respiratory symptoms and the patient was found to be hypoxic in the emergency department with an initial pulse ox in the 80s. He was placed on oxygen. This is vaccinated individual. At the same time, the patient was complaining of generalized weakness and fatigue and myalgias and tiredness and diminished appetite. In the emergency, the patient's vitals were stable. He was hypoxic. He was placed on oxygen. The blood work showed a sodium level of 128, serum bicarb was 20, chloride was 99, creatinine was 0.8, glucose was 138, illness count is 10.4, hemoglobin is at 15.5, his electrolytes showed a potassium level of 3.5, calcium was 8.0, his d- dimer was 0.8, inflammatory markers are still pending for now. [place] was attempted 0.4. Chest x-ray revealed bilateral pulmonary infiltrates consistent with COVID 19 infection. The patient is currently on IV fluids of normal saline at the rate of 75 mL's an hour. He was given Decadron. He will be started also on Lovenox for DVT prophylaxis. Milligrams subcu daily basis. 10/23/2021, the patient is feeling slightly better. Oxygenation remains unchanged and the patient remains on oxygen at 4 L of oxygen by nasal cannula. In terms of his treatment, the patient was started on a combination of Remdesivir and Decadron yesterday. He was also placed on Lovenox. Blood work from today shows a LDH level of 1305, CRP is at 7.5, d-dimer 00.6. No other issues for now. He is still awaiting a bed. He is on IV fluids with normal saline at the rate of 75 mL an hour. The sodium level at the time of admission was at 128 and this is to be followed up. The patient is seen today 10/24/2021 in follow-up on the regular medical floor. He is currently resting in bed. Awake and alert in no acute distress. Doing about the same today as compared to yesterday. No worse. Still requiring 8 L high flow nasal cannula to maintain O2 saturations in the upper 80s and low 90s. He's been afebrile. Hemodynamically stable. White count 12.4. Hemoglobin 13.5. Leukocytes 2.5. D-dimer 1.24. Sodium 138. Potassium 4.1. Creatinine 0.75. AST 75. ALT 86. LDH 1424. C-reactive protein 4.1. He is continued on Lovenox, Decadron, vitamin supplements. This is day #3 of Remdesivir. Objective - Vital Signs Vital signs: Vital Signs Temp 97.5 F L 10/24/21 14:30 Pulse 80 10/24/21 14:30 Resp 17 10/24/21 14:30 BP 137/80 10/24/21 14:30 Pulse Ox 86 L 10/24/21 14:30 Intake & Output 10/23/21 10/24/21 10/24/21 18:59 06:59 18:59 Intake Total 600 600 Balance 600 600 Weight 92.079 kg Intake: Intake, IV Titration 600 600 Amount Sodium Chloride 0.9% 1, 600 600 000 ml @ 75 mls/hr IV . [id number] [facility] Rx#:[id number] Other: # Voids 1 - Exam GENERAL EXAM: Alert, very pleasant 61-year-old male patient, on 8 L nasal cannula, fairly comfortable in no apparent distress. HEAD: Normocephalic. EYES: Normal reaction of pupils, equal size. NOSE: Clear with pink turbinates. THROAT: No erythema or exudates. NECK: No masses, no JVD. CHEST: No chest wall deformity. LUNGS: Equal air entry with crackles in the bilateral bases CVS: S1 and S2 normal with no audible murmur, regular rhythm. ABDOMEN: No hepatosplenomegaly, normal bowel sounds, no guarding or rigidity. SPINE: No scoliosis or deformity SKIN: No rashes CENTRAL NERVOUS SYSTEM: No focal deficits, tone is normal in all 4 extremities. EXTREMITIES: There is no peripheral edema. No clubbing, no cyanosis. Peripheral pulses are intact. - Labs CBC & Chem 7: 10/24/21 09:34 10/24/21 09:34 Labs: Abnormal Lab Results - Last 24 Hours (Table) 10/22/21 10/24/21 10/24/21 Range/Units 18:51 09:34 09:34 WBC 12.4 H (3.8-10.6) k/uL Neutrophils # 8.9 H (1.3-7.7) k/uL D-Dimer 1.24 H (<0.60) mg/L FEU Chloride (98-107) mmol/L Carbon Dioxide (22-30) mmol/L BUN (9-20) mg/dL Glucose (74-99) mg/dL Calcium (8.4-10.2) mg/dL AST (17-59) U/L ALT (4-49) U/L Lactate Dehydrogenase (313-618) U/L C-Reactive Protein (<1.0) mg/dL Total Protein (6.3-8.2) g/dL Albumin (3.5-5.0) g/dL Procalcitonin 1.21 H (0.02-0.09) ng/mL 10/24/21 Range/Units 09:34 WBC (3.8-10.6) k/uL Neutrophils # (1.3-7.7) k/uL D-Dimer (<0.60) mg/L FEU Chloride 108 H (98-107) mmol/L Carbon Dioxide 20 L (22-30) mmol/L BUN 25 H (9-20) mg/dL Glucose 180 H (74-99) mg/dL Calcium 7.8 L (8.4-10.2) mg/dL AST 75 H (17-59) U/L ALT 86 H (4-49) U/L Lactate Dehydrogenase 1424 H (313-618) U/L C-Reactive Protein 4.1 H (<1.0) mg/dL Total Protein 5.8 L (6.3-8.2) g/dL Albumin 2.9 L (3.5-5.0) g/dL Procalcitonin (0.02-0.09) ng/mL Assessment and Plan Assessment: 1 acute COVID 19 related pneumonia with secondary shortness of breath, symptoms started approximately 7 days ago and the patient is an progressively getting worse. Presented to the hospital because of generalized constitutional symptoms and hypoxemia. The patient is feeling slightly better with the current treatment of Remdesivir and Decadron. No new complaints. He is on IV fluids. On 8 L high flow nasal cannula 2 acute hypoxic respiratory failure and the patient has limited infiltration bilaterally consistent with COVID 19 related pneumonia 3 shortness of breath secondary to above 4 hypovolemic hyponatremia secondary to above 5 history of coronary artery disease currently inactive in stable 6 hyperlipidemia maintained on Crestor no patient basis Plan The patient was seen and evaluated Currently on 8 L high flow nasal cannula Day #3 of Remdesivir Continue Decadron, Lovenox, vitamin supplement We will continue to follow
--- NOTE | 2021-10-24 15:34 | P.HPIM ---
History of Present Illness Patient is a 61-year-old male came in with complaints of shortness of breath cough and loss of sensation of smell which started about a week ago. Patient is found to have Covid 19 infection. Patient is presently on 4 L of oxygen patient d-dimer is around 0.8 patient is a significantly tired with myalgias. Patient is not vaccinated patient is presently on the multivitamin supplementations and Decadron along with Lovenox. 10/24/2021 Patient is presently on 8 L of oxygen patient has worsening inflammatory markers patient d-dimer is a highly elevated because of which I'll increase her Lovenox dose. Constitutional: Denied any fatigue denied any fever. Cardio vascular: denied any chest pain, palpitations Gastrointestinal denied any nausea vomiting Pulmonary: Denied any shortness of breath cough Neurologic denied any new focal deficits All inpatient medications were reviewed and appropriate changes in these medications as dictated in the interval history and assessment and plan. PHYSICAL EXAMINATION: GENERAL: The patient is alert and oriented x3, not in any acute distress. Well developed, well nourished. HEENT: Pupils are round and equally reacting to light. EOMI. No scleral icterus. No conjunctival pallor. Normocephalic, atraumatic. No pharyngeal erythema. No thyromegaly. CARDIOVASCULAR: S1 and S2 present. No murmurs, rubs, or gallops. PULMONARY: Chest is clear to auscultation, no wheezing or crackles. ABDOMEN: Soft, nontender, nondistended, normoactive bowel sounds. No palpable organomegaly. MUSCULOSKELETAL: No joint swelling or deformity. EXTREMITIES: No cyanosis, clubbing, or pedal edema. NEUROLOGICAL: Gross neurological examination did not reveal any focal deficits. SKIN: No rashes. Assessment and plan -Acute hypoxic respiratory failure secondary to Covid 19 pneumonia, continue with Decadron, Covid vitamin supplementation. Patient is also on Remdesivir -Covid 19 infection -Hypovolemic hyponatremia: Continue with IV fluids -Ray artery disease -Hypertension DVT prophylaxis: Lovenox Past Medical History Past Medical History: Coronary Artery Disease (CAD), Hypertension, Myocardial Infarction ([place]) Last Myocardial Infarction Date:: 2010 History of Any Multi-Drug Resistant Organisms: None Reported Past Surgical History: Heart Catheterization, Heart Catheterization With Stent Additional Past Surgical History / Comment(s): colonoscopy Past Anesthesia/Blood Transfusion Reactions: No Reported Reaction Date of Last Stent Placement:: 2010 Smoking Status: Never smoker - Past Family History Mother Family Medical History: No Reported History Additional Family Medical History / Comment(s): Mother is healthy Father Family Medical History: Myocardial Infarction ([place]) Additional Family Medical History / Comment(s): Father of a [place] at the age of 80. Medications and Allergies Home Medications Medication Instructions Recorded Confirmed Type Aspirin EC [Ecotrin Low Dose] 81 mg PO HS 10/22/21 10/22/21 History Multivitamins, Thera [Multivitamin 1 tab PO HS 10/22/21 10/22/21 History (formulary)] Rosuvastatin [Crestor] 20 mg PO HS 10/22/21 10/22/21 History atenoloL [Tenormin] 25 mg PO HS 10/22/21 10/22/21 History Allergies Allergy/AdvReac Type Severity Reaction Status Date / Time iodine Allergy Unknown Verified 10/22/21 17:04 Penicillins Allergy Unknown Verified 10/22/21 17:04 Physical Exam Vitals: Vital Signs Temp Pulse Resp BP Pulse Ox 10/24/21 14:30 97.5 F L 80 17 137/80 86 L 10/24/21 10:10 98.3 F 76 18 128/81 90 L 10/24/21 05:43 98.0 F 67 17 102/47 92 L 10/24/21 02:07 98.2 F 68 18 106/67 91 L 10/23/21 21:43 97.5 F L 76 19 118/79 95 10/23/21 20:00 76 19 10/23/21 17:14 98.5 F 82 18 123/74 86 L Intake and Output 10/24/21 10/24/21 10/24/21 06:59 14:59 22:59 Intake Total 600 Balance 600 Intake: Intake, IV Titration 600 Amount Sodium Chloride 0.9% 1, 600 000 ml @ 75 mls/hr IV . [id number] [facility] Rx#:[id number] Other: # Voids 1 Results CBC & Chem 7: 10/24/21 09:34 10/24/21 09:34 Labs: Abnormal Lab Results - Last 24 Hours (Table) 10/24/21 10/24/21 10/24/21 Range/Units 09:34 09:34 09:34 WBC 12.4 H (3.8-10.6) k/uL Neutrophils # 8.9 H (1.3-7.7) k/uL D-Dimer 1.24 H (<0.60) mg/L FEU Chloride 108 H (98-107) mmol/L Carbon Dioxide 20 L (22-30) mmol/L BUN 25 H (9-20) mg/dL Glucose 180 H (74-99) mg/dL Calcium 7.8 L (8.4-10.2) mg/dL AST 75 H (17-59) U/L ALT 86 H (4-49) U/L Lactate Dehydrogenase 1424 H (313-618) U/L C-Reactive Protein 4.1 H (<1.0) mg/dL Total Protein 5.8 L (6.3-8.2) g/dL Albumin 2.9 L (3.5-5.0) g/dL Thrombosis Risk Factor Assmnt - Choose All That Apply Any of the Below Risk Factors Present?: Yes Each Factor Represents 1 point: Age 41-60 years, Obesity (BMI >25), Serious lung disease incl. pneumonia (< 1month) Other Risk Factors: No Other congenital or acquired thrombophilia - If yes, enter type in comment: No Thrombosis Risk Factor Assessment Total Risk Factor Score: 3 Thrombosis Risk Factor Assessment Level: Moderate Risk
[2021-10-24] MEDS: REMDESIVIR 100 MG in SODIUM CHLORIDE 0.9% 250 ML IVPB SCH (17:35)
[2021-10-24] MEDS: ATORVASTATIN 40 MG TAB PO SCH (20:25)
[2021-10-24] MEDS: ASPIRIN 81 MG PO SCH (20:26)
[2021-10-24] MEDS: MULTIVITAMINS, THERA 1 EACH TAB PO SCH (20:26)
[2021-10-24] MEDS: atenoloL 25 MG TAB PO SCH (20:26)
[2021-10-24 23:26] LABS: Hepatitis A Antibody IgM Nonreactive (Nonreactive); Hepatitis B Core IgM Nonreactive (Nonreactive); Hepatitis B Surface Antigen Nonreactive (Nonreactive); Hepatitis C IgG Antibody Nonreactive (Nonreactive)
--- NOTE | 2021-10-25 08:19 | US ---
EXAMINATION TYPE: US gallbladder DATE OF EXAM: 10/25/2021 COMPARISON: NONE CLINICAL HISTORY: elevated liver enzymes. Covid positive. EXAM MEASUREMENTS: Liver Length: 15.7 cm Gallbladder Wall: 0.3 cm CBD: 0.3 cm Right Kidney: 11.9 x 6.5 x 6.6 cm Pancreas: Obscured by bowel gas Liver: wnl Gallbladder: No stones seen Evidence for sonographic Cronin's sign: No CBD: wnl Right Kidney: No hydronephrosis or masses seen No right renal calcifications. IMPRESSION: No significant abnormality seen.
[2021-10-25] MEDS: ENOXAPARIN 40 MG/0.4 ML SYRINGE SQ SCH ×2 (09:16→21:46)
[2021-10-25] MEDS: CHOLECALCIFEROL 25 MCG (1000 IU) TABLET PO SCH (09:16)
[2021-10-25] MEDS: ZINC SULFATE 220 MG CAP PO SCH (09:16)
[2021-10-25] MEDS: ASCORBIC ACID 500 MG TAB PO SCH ×2 (09:17→21:46)
[2021-10-25] MEDS: dexAMETHasone 2 MG TAB PO SCH (09:17)
[2021-10-25 10:01] LABS: African American GFR (CKD) 119.7 (60.0-200.0); Albumin 2.9 g/dL (3.8-4.9); Albumin/Globulin Ratio 1.26 (1.60-3.17); BUN/Creat Ratio 34.57 Ratio (12.00-20.00); Blood Urea Nitrogen 24.2 mg/dL (9.0-27.0); Calcium 7.8 mg/dL (8.7-10.3); Globulin 2.3 g/dL (1.6-3.3); Non-African American GFR(CKD) 103.3 (60.0-200.0); Potassium 4.2 mmol/L (3.5-5.5); Total Bilirubin 0.4 mg/dL (0.30-1.20); Total Protein 5.2 g/dL (6.2-8.2)
[2021-10-25 10:41] LABS: HCT 39.2 % (39.6-50.0); HGB 12.9 g/dL (13.0-17.0); MCH 28.8 pg (27.0-32.0); MCHC 32.9 g/dL (32.0-37.0); MCV 87.5 fL (80.0-97.0); Mean Platelet Volume 10.2 fL (9.5-12.2); Platelet Count 330 X 10*3/uL (140-440); RBC 4.48 X 10*6/uL (4.40-5.60); RDW 13.5 % (11.5-14.5); WBC 13.77 X 10*3/uL (4.50-10.00)
[2021-10-25] MEDS: SODIUM CHLORIDE 0.9% 1,000 ML IV SCH (11:55)
--- NOTE | 2021-10-25 14:06 | P.PN ---
Subjective Patient is a 61-year-old male came in with complaints of shortness of breath cough and loss of sensation of smell which started about a week ago. Patient is found to have Covid 19 infection. Patient is presently on 4 L of oxygen patient d-dimer is around 0.8 patient is a significantly tired with myalgias. Patient is not vaccinated patient is presently on the multivitamin supplementations and Decadron along with Lovenox. 10/24/2021 Patient is presently on 8 L of oxygen patient has worsening inflammatory markers patient d-dimer is a highly elevated because of which I'll increase her Lovenox dose. 10/25/2021 Patient has some improvement today patient is requiring 7 liters of oxygen saturating well patient is also feeling better. Patient liver enzymes have been mildly elevated will repeat liver enzymes again tomorrow all the workup for elevated liver enzymes including ultrasound of the abdomen and hepatitis panel is negative. Constitutional: Denied any fatigue denied any fever. Cardio vascular: denied any chest pain, palpitations Gastrointestinal denied any nausea vomiting Pulmonary: Denied any shortness of breath cough Neurologic denied any new focal deficits All inpatient medications were reviewed and appropriate changes in these medications as dictated in the interval history and assessment and plan. PHYSICAL EXAMINATION: GENERAL: The patient is alert and oriented x3, not in any acute distress. Well developed, well nourished. HEENT: Pupils are round and equally reacting to light. EOMI. No scleral icterus. No conjunctival pallor. Normocephalic, atraumatic. No pharyngeal erythema. No thyromegaly. CARDIOVASCULAR: S1 and S2 present. No murmurs, rubs, or gallops. PULMONARY: Chest is clear to auscultation, no wheezing or crackles. ABDOMEN: Soft, nontender, nondistended, normoactive bowel sounds. No palpable organomegaly. MUSCULOSKELETAL: No joint swelling or deformity. EXTREMITIES: No cyanosis, clubbing, or pedal edema. NEUROLOGICAL: Gross neurological examination did not reveal any focal deficits. SKIN: No rashes. Assessment and plan -Acute hypoxic respiratory failure secondary to Covid 19 pneumonia, continue with Decadron, Covid vitamin supplementation. Patient is also on Remdesivir -Covid 19 infection -Hypovolemic hyponatremia: Continue with IV fluids - Coronaryartery disease --Transaminitis secondary to Covid 19 -Hypertension DVT prophylaxis: Lovenox Objective - Vital Signs Vital signs: Vital Signs Temp 98.3 F 10/25/21 10:00 Pulse 82 10/25/21 10:00 Resp 20 10/25/21 10:00 BP 121/77 10/25/21 10:00 Pulse Ox 96 10/25/21 10:00 Intake & Output 10/24/21 10/25/21 10/25/21 18:59 06:59 18:59 Intake Total 180 Balance 180 Intake: Oral 180 Other: # Voids 2 1 # Bowel Movements 1 - Labs CBC & Chem 7: 10/25/21 06:21 10/25/21 06:21 Labs: Abnormal Lab Results - Last 24 Hours (Table) 10/25/21 10/25/21 Range/Units 06:21 06:21 WBC 13.77 H (4.50-10.00) X 10*3/uL Hgb 12.9 L (13.0-17.0) g/dL Hct 39.2 L (39.6-50.0) % Carbon Dioxide 18.0 L (20.0-27.5) mmol/L BUN/Creatinine Ratio 34.57 H (12.00-20.00) Ratio Calcium 7.8 L (8.7-10.3) mg/dL AST 65 H (14-35) U/L ALT 107 H (10-49) U/L Total Protein 5.2 L (6.2-8.2) g/dL Albumin 2.9 L (3.8-4.9) g/dL Albumin/Globulin Ratio 1.26 L (1.60-3.17) g/dL
--- NOTE | 2021-10-25 15:52 | P.PN ---
Subjective Progress Note Date: 10/25/21 61-year-old male patient is currently hospitalized for COVID 19 related pneumonia. The patient initially developed symptoms of URI and he lost his smell approximately a week ago. He went to an urgent care any tested positive. His symptoms progressively got worse especially the respiratory symptoms and the patient was found to be hypoxic in the emergency department with an initial pulse ox in the 80s. He was placed on oxygen. This is vaccinated individual. At the same time, the patient was complaining of generalized weakness and fatigue and myalgias and tiredness and diminished appetite. In the emergency, the patient's vitals were stable. He was hypoxic. He was placed on oxygen. The blood work showed a sodium level of 128, serum bicarb was 20, chloride was 99, creatinine was 0.8, glucose was 138, illness count is 10.4, hemoglobin is at 15.5, his electrolytes showed a potassium level of 3.5, calcium was 8.0, his d- dimer was 0.8, inflammatory markers are still pending for now. [place] was attempted 0.4. Chest x-ray revealed bilateral pulmonary infiltrates consistent with COVID 19 infection. The patient is currently on IV fluids of normal saline at the rate of 75 mL's an hour. He was given Decadron. He will be started also on Lovenox for DVT prophylaxis. Milligrams subcu daily basis. 10/23/2021, the patient is feeling slightly better. Oxygenation remains unchanged and the patient remains on oxygen at 4 L of oxygen by nasal cannula. In terms of his treatment, the patient was started on a combination of Remdesivir and Decadron yesterday. He was also placed on Lovenox. Blood work from today shows a LDH level of 1305, CRP is at 7.5, d-dimer 00.6. No other issues for now. He is still awaiting a bed. He is on IV fluids with normal saline at the rate of 75 mL an hour. The sodium level at the time of admission was at 128 and this is to be followed up. The patient is seen today 10/24/2021 in follow-up on the regular medical floor. He is currently resting in bed. Awake and alert in no acute distress. Doing about the same today as compared to yesterday. No worse. Still requiring 8 L high flow nasal cannula to maintain O2 saturations in the upper 80s and low 90s. He's been afebrile. Hemodynamically stable. White count 12.4. Hemoglobin 13.5. Leukocytes 2.5. D-dimer 1.24. Sodium 138. Potassium 4.1. Creatinine 0.75. AST 75. ALT 86. LDH 1424. C-reactive protein 4.1. He is continued on Lovenox, Decadron, vitamin supplements. This is day #3 of Remdesivir. The patient is seen today 10/25/2021 in follow-up on the regular medical floor. He is currently resting comfortably in bed. Awake and alert in no acute distress. He is still requiring 7-8 L high flow nasal cannula to maintain O2 saturation low 90s. He's been afebrile. Hemodynamically stable. Ultrasound of the gallbladder revealed no significant abnormalities. White count 13.7. Hemoglobin 12.9. Sodium 140. Potassium 4.2. Creatinine 0.7. AST 65. ALT 107. He is continued on Lovenox, Decadron, vitamin supplements. Day #4 of Remdesivir. Objective - Vital Signs Vital signs: Vital Signs Temp 97.5 F L 10/25/21 14:00 Pulse 81 10/25/21 14:00 Resp 22 10/25/21 14:00 BP 132/85 10/25/21 14:00 Pulse Ox 90 L 10/25/21 14:00 Intake & Output 10/24/21 10/25/21 10/25/21 18:59 06:59 18:59 Intake Total 180 Balance 180 Intake: Oral 180 Other: # Voids 2 1 # Bowel Movements 1 - Exam GENERAL EXAM: Alert, very pleasant 61-year-old male patient, on 7 L nasal cannula, fairly comfortable in no apparent distress. HEAD: Normocephalic. EYES: Normal reaction of pupils, equal size. NOSE: Clear with pink turbinates. THROAT: No erythema or exudates. NECK: No masses, no JVD. CHEST: No chest wall deformity. LUNGS: Equal air entry with crackles in the bilateral bases CVS: S1 and S2 normal with no audible murmur, regular rhythm. ABDOMEN: No hepatosplenomegaly, normal bowel sounds, no guarding or rigidity. SPINE: No scoliosis or deformity SKIN: No rashes CENTRAL NERVOUS SYSTEM: No focal deficits, tone is normal in all 4 extremities. EXTREMITIES: There is no peripheral edema. No clubbing, no cyanosis. Peripheral pulses are intact. - Labs CBC & Chem 7: 10/25/21 06:21 10/25/21 06:21 Labs: Abnormal Lab Results - Last 24 Hours (Table) 10/25/21 10/25/21 Range/Units 06:21 06:21 WBC 13.77 H (4.50-10.00) X 10*3/uL Hgb 12.9 L (13.0-17.0) g/dL Hct 39.2 L (39.6-50.0) % Carbon Dioxide 18.0 L (20.0-27.5) mmol/L BUN/Creatinine Ratio 34.57 H (12.00-20.00) Ratio Calcium 7.8 L (8.7-10.3) mg/dL AST 65 H (14-35) U/L ALT 107 H (10-49) U/L Total Protein 5.2 L (6.2-8.2) g/dL Albumin 2.9 L (3.8-4.9) g/dL Albumin/Globulin Ratio 1.26 L (1.60-3.17) g/dL Assessment and Plan Assessment: 1 acute COVID 19 related pneumonia with secondary shortness of breath, symptoms started approximately 7 days prior to presenting to the ER and the patient is an progressively getting worse. Presented to the hospital because of generalized constitutional symptoms and hypoxemia. The patient is feeling slightly better with the current treatment of Remdesivir and Decadron. No new complaints. On 7 L high flow nasal cannula 2 acute hypoxic respiratory failure and the patient has limited infiltration bilaterally consistent with COVID 19 related pneumonia 3 shortness of breath secondary to above 4 hypovolemic hyponatremia secondary to above 5 history of coronary artery disease currently inactive in stable 6 hyperlipidemia maintained on Crestor no patient basis Plan The patient was seen and evaluated Feeling about the same, stable Currently on 7 L high flow nasal cannula Day #4 of Remdesivir Continue Decadron, Lovenox, vitamin supplement We will continue to follow
[2021-10-25] MEDS: REMDESIVIR 100 MG in SODIUM CHLORIDE 0.9% 250 ML IVPB SCH (17:30)
[2021-10-25] MEDS: ASPIRIN 81 MG PO SCH (21:46)
[2021-10-25] MEDS: ATORVASTATIN 40 MG TAB PO SCH (21:46)
[2021-10-25] MEDS: MULTIVITAMINS, THERA 1 EACH TAB PO SCH (21:46)
[2021-10-25] MEDS: atenoloL 25 MG TAB PO SCH (21:46)
[2021-10-26] MEDS: SODIUM CHLORIDE 0.9% 1,000 ML IV SCH ×2 (02:43→22:30)
--- NOTE | 2021-10-26 06:56 | XR ---
EXAMINATION TYPE: XR chest 1V DATE OF EXAM: 10/26/2021 CLINICAL HISTORY: Difficulty breathing and covid pneumonia progress study. TECHNIQUE: Single AP portable upright view of the chest is obtained. COMPARISON: Chest x-ray from 2 and 4 days earlier FINDINGS: There are bilateral multifocal peripheral increased opacities redemonstrated. The cardiac silhouette size is stable and mildly enlarged. The osseous structures are intact. IMPRESSION: Mild cardiomegaly with Bilateral multifocal peripheral mid to lower lung opacities consi stent with covid-19 infection. No significant change from most recent x-ray.
[2021-10-26] MEDS: CHOLECALCIFEROL 25 MCG (1000 IU) TABLET PO SCH (07:45)
[2021-10-26] MEDS: dexAMETHasone 2 MG TAB PO SCH (07:45)
[2021-10-26] MEDS: ASCORBIC ACID 500 MG TAB PO SCH ×2 (07:45→22:28)
[2021-10-26] MEDS: ENOXAPARIN 40 MG/0.4 ML SYRINGE SQ SCH ×2 (07:45→22:28)
[2021-10-26] MEDS: ZINC SULFATE 220 MG CAP PO SCH (07:45)
[2021-10-26 10:35] LABS: MCH 28.6 pg (27.0-32.0); MCHC 32.5 g/dL (32.0-37.0); MCV 88.1 fL (80.0-97.0); Mean Platelet Volume 9.7 fL (9.5-12.2); Platelet Count 354 X 10*3/uL (140-440); RBC 4.54 X 10*6/uL (4.40-5.60); RDW 13.5 % (11.5-14.5); WBC 11.95 X 10*3/uL (4.50-10.00)
[2021-10-26 10:54] LABS: African American GFR (CKD) 113.3 (60.0-200.0); Albumin/Globulin Ratio 1.3 (1.60-3.17); Anion Gap 10.6 mmol/L (10.00-18.00); BUN/Creat Ratio 23.88 Ratio (12.00-20.00); Blood Urea Nitrogen 19.1 mg/dL (9.0-27.0); C Reactive Protein 2.6 mg/dL (0.00-0.80); Calcium 8.2 mg/dL (8.7-10.3); Carbon Dioxide 22.4 mmol/L (20.0-27.5); Globulin 2.3 g/dL (1.6-3.3); Non-African American GFR(CKD) 97.8 (60.0-200.0); Potassium 4.8 mmol/L (3.5-5.5); Total Bilirubin 0.6 mg/dL (0.30-1.20); Total Protein 5.3 g/dL (6.2-8.2)
[2021-10-26] MEDS: REMDESIVIR 100 MG in SODIUM CHLORIDE 0.9% 250 ML IVPB SCH (17:18)
--- NOTE | 2021-10-26 17:45 | P.PN ---
Subjective Progress Note Date: 10/26/21 Principal diagnosis: Dyspnea On 10/26/2021 patient seen in follow-up on medical surgical floor, he looks very comfortable, no worsening dyspnea, he is currently on 7 L of oxygen pulse ox is 92-93%, he is walking in the room, tolerating activity very well, he is on Remdesivir day 5 of treatment, he remains on Decadron 6 program daily, Lovenox 40 mg twice daily, and COVID-19 multivitamins. Today's labs have been reviewed, white blood cell count is 11.9, hemoglobin is 13, his d-dimer slightly improved and is down to 0.89, electrolytes and renal profile on unremarkable, his LDH is significantly improved and is down to 434, and CRP is down to 2.6. No acute events overnight, no nausea vomiting or diarrhea, tolerating oral intake, no abdominal pain. Chest x-ray today shows mild cardiomegaly with bilateral multifocal peripheral mid to lower lung opacities consistent with COVID-19 infection without significant change from most recent chest x-ray. Objective - Vital Signs Vital signs: Vital Signs Temp 98.4 F 10/26/21 14:00 Pulse 78 10/26/21 14:00 Resp 26 H 10/26/21 14:00 BP 148/89 10/26/21 14:00 Pulse Ox 92 L 10/26/21 14:00 Intake & Output 10/25/21 10/26/21 10/26/21 18:59 06:59 18:59 Intake Total 560 Balance 560 Intake: Oral 560 Other: # Voids 5 3 - Exam GENERAL EXAM: Alert, very pleasant, white male, 7 L of oxygen pulse ox is 92% comfortable in no apparent distress. HEAD: Normocephalic/atraumatic. EYES: Normal reaction of pupils, equal size. Conjunctiva pink, sclera white. NOSE: Clear with pink turbinates. THROAT: No erythema or exudates. NECK: No masses, no JVD, no thyroid enlargement, no adenopathy. CHEST: No chest wall deformity. Symmetrical expansion. LUNGS: Equal air entry with crackles ABDOMEN: Soft, nontender. No hepatosplenomegaly, normal bowel sounds, no guarding or rigidity. EXTREMITIES: No clubbing, no edema, no cyanosis, 2+ pulses and upper and lower extremities. MUSCULOSKELETAL: Muscle strength and tone normal. SPINE: No scoliosis or deformity SKIN: No rashes CENTRAL NERVOUS SYSTEM: Alert and oriented -3. No focal deficits, tone is normal in all 4 extremities. PSYCHIATRIC: Alert and oriented -3. Appropriate affect. Intact judgment and insight. - Labs CBC & Chem 7: 10/26/21 06:19 12 06:19 Labs: Abnormal Lab Results - Last 24 Hours (Table) 10/26/21 10/26/21 10/26/21 Range/Units 06:19 06:19 06:19 WBC 11.95 H (4.50-10.00) X 10*3/uL D-Dimer 0.89 H (<0.60) mg/L FEU BUN/Creatinine Ratio 23.88 H (12.00-20.00) Ratio Calcium 8.2 L (8.7-10.3) mg/dL AST 57 H (14-35) U/L ALT 114 H (10-49) U/L Lactate Dehydrogenase 434 H (120-246) U/L C-Reactive Protein 2.60 H (0.00-0.80) mg/dL Total Protein 5.3 L (6.2-8.2) g/dL Albumin 3.0 L (3.8-4.9) g/dL Albumin/Globulin Ratio 1.30 L (1.60-3.17) g/dL Assessment and Plan Plan: Assessment: #1. Acute hypoxic respiratory failure related to acute COVID-19 related pneumonia, patient presented with 7 day history of symptoms and was progressively getting worse. Patient was started on Remdesivir and Decadron, he is doing well, remains stable, he is currently down to 7 L of oxygen per high flow nasal cannula. #2. Shortness of breath, cough, exertional dyspnea related to the above #3. Hypovolemic hyponatremia, improved #4. History of coronary artery disease currently inactive #5. Hyperlipidemia #6. Increased inflammatory markers, improving Plan: Patient is completing his Remdesivir treatment today Clinically patient has remained stable, no worsening dyspnea, remains on 7 L of oxygen, with wean FiO2 to keep O2 sats rashes at 90% Physically patient is active, tolerating ambulation about the room No acute distress Inflammatory markers are improving Once FiO2 down to 5 L unless we will consider the patient for discharge home I performed a history & physical examination of the patient and discussed their management with my nurse practitioner, Ingrid Oscar. I reviewed the nurse practitioner's note and agree with the documented findings and plan of care. Lung sounds are positive for dim breath sounds throughout the lung meadows. The findings and the impression was discussed with the patient. I attest to the documentation by the nurse practitioner.
--- NOTE | 2021-10-26 18:50 | P.PN ---
Subjective Progress Note Date: 10/26/21 Chris Story is a 61-year-old male hospitalized for COVID 19 related pneumonia. The patient initially developed symptoms of URI and he lost his smell approximately a week ago. He went to an urgent care any tested positive. His symptoms progressively got worse especially the respiratory symptoms and the patient was found to be hypoxic in the emergency department with an initial pulse ox in the 80s. He was placed on oxygen. This is vaccinated individual. At the same time, the patient was complaining of generalized weakness and fatigue and myalgias and tiredness and diminished appetite. In the emergency, the patient's vitals were stable. He was hypoxic. He was placed on oxygen. The blood work showed a sodium level of 128, serum bicarb was 20, chloride was 99, creatinine was 0.8, glucose was 138, illness count is 10.4, hemoglobin is at 15.5, his electrolytes showed a potassium level of 3.5, calcium was 8.0, his d- dimer was 0.8, inflammatory markers are still pending for now. Chest x-ray revealed bilateral pulmonary infiltrates consistent with COVID 19 infection. The patient is currently on IV fluids of normal saline at the rate of 75 mL's an hour, IV Decadron and subcu Lovenox. On 10/26/2021 patient was seen and examined on the medical floor, he is alert and oriented 3 in no apparent distress, he is complaining of cough and shortness of breath with activity otherwise he denies any complaints, there is no fever or chills no headache or dizziness no chest pain no nausea or vomiting no abdominal pain no diarrhea no blood in the stools no burning with urination no frequency or urgency and no hematuria. he is still maintained on oxygen at 6 L via nasal cannula, he is receiving Remdesevir, IV Decadron and subcu Lovenox Objective - Vital Signs Vital signs: Vital Signs Temp 98.7 F 10/26/21 06:00 Pulse 64 10/26/21 06:00 Resp 18 10/26/21 08:45 BP 122/76 10/26/21 06:00 Pulse Ox 93 L 10/26/21 06:00 Intake & Output 10/25/21 10/26/21 10/26/21 18:59 06:59 18:59 Intake Total 200 Balance 200 Intake: Oral 200 Other: # Voids 5 3 - Exam In general patient is alert and oriented x 3 in no distress HEENT head normocephalic and atraumatic Neck is supple no JVD no goiter no lymphadenopathy no carotid bruit Chest examination crackles in both lung meadows with wheezing Cardiac exam reveals regular heart sounds S1 and S2 no gallops no murmurs Abdomen is soft nontender no organomegaly with normal bowel sounds Extremity exam reveals no edema no cyanosis or clubbing Neurological examination reveals no gross focal deficits - Labs CBC & Chem 7: 10/26/21 06:19 12 06:19 Labs: Abnormal Lab Results - Last 24 Hours (Table) 10/26/21 10/26/21 Range/Units 06:19 06:19 WBC 11.95 H (4.50-10.00) X 10*3/uL D-Dimer 0.89 H (<0.60) mg/L FEU Assessment and Plan Plan: 1. Acute hypoxic respiratory failure secondary to Covid 19 pneumonia, continue with Decadron, Covid vitamin supplementation. Patient is on Remdesivir 2. Covid 19 infection 3. Hypovolemic hyponatremia: Continue with IV fluids 4. Underlying history of Coronary artery disease 5. Elevated liver enzymes secondary to Covid 19 6. Underlying history of Hypertension Medications and labs were reviewed Continue was current management Patient is finishing course Remdesevir, possible discharge to home in the next 1-2 days Patient will need oxygen at home
[2021-10-26] MEDS: ATORVASTATIN 40 MG TAB PO SCH (22:28)
[2021-10-26] MEDS: ASPIRIN 81 MG PO SCH (22:28)
[2021-10-26] MEDS: atenoloL 25 MG TAB PO SCH (22:28)
[2021-10-26] MEDS: MULTIVITAMINS, THERA 1 EACH TAB PO SCH (22:28)
[2021-10-27] MEDS: ENOXAPARIN 40 MG/0.4 ML SYRINGE SQ SCH ×2 (08:08→20:07)
[2021-10-27] MEDS: CHOLECALCIFEROL 25 MCG (1000 IU) TABLET PO SCH (08:08)
[2021-10-27] MEDS: ASCORBIC ACID 500 MG TAB PO SCH ×2 (08:08→20:07)
[2021-10-27] MEDS: dexAMETHasone 2 MG TAB PO SCH (08:08)
[2021-10-27] MEDS: ZINC SULFATE 220 MG CAP PO SCH (08:08)
--- NOTE | 2021-10-27 12:11 | P.PN ---
Subjective Progress Note Date: 10/27/21 Principal diagnosis: Dyspnea On 10/26/2021 patient seen in follow-up on medical surgical floor, he looks very comfortable, no worsening dyspnea, he is currently on 7 L of oxygen pulse ox is 92-93%, he is walking in the room, tolerating activity very well, he is on Remdesivir day 5 of treatment, he remains on Decadron 6 program daily, Lovenox 40 mg twice daily, and COVID-19 multivitamins. Today's labs have been reviewed, white blood cell count is 11.9, hemoglobin is 13, his d-dimer slightly improved and is down to 0.89, electrolytes and renal profile on unremarkable, his LDH is significantly improved and is down to 434, and CRP is down to 2.6. No acute events overnight, no nausea vomiting or diarrhea, tolerating oral intake, no abdominal pain. Chest x-ray today shows mild cardiomegaly with bilateral multifocal peripheral mid to lower lung opacities consistent with COVID-19 infection without significant change from most recent chest x-ray. On today's evaluation on 10/27/2021 patient seen in follow-up on medical surgical floor, earlier today his sats were 93% on 7 L, patient is breathing very comfortably, and FiO2 has been cut back to 6 L, patient is breathing comfortably, denies any specific complaints, no worsening dyspnea, lung sounds still revealed coarse bilateral crackles, last chest x-ray from yesterday showed mild cardiomegaly and bilateral multifocal peripheral lung opacities consistent with patient's history of COVID-19 pneumonia. Labs have been reviewed showing white blood cell count of 11.9, hemoglobin of 13, d-dimer is 0.89, electrolytes and renal profile were unremarkable, LDH and CRP were improving on yesterday's labs. Patient completed his Remdesivir today, he remains on Decadron and prophylactic Lovenox, clinically has been stable, tolerating intubation about the room. No acute events overnight. Objective - Vital Signs Vital signs: Vital Signs Temp 97.9 F 10/27/21 10:00 Pulse 86 10/27/21 10:00 Resp 20 10/27/21 10:00 BP 139/89 10/27/21 10:00 Pulse Ox 93 L 10/27/21 10:00 Intake & Output 10/26/21 10/27/21 10/27/21 18:59 06:59 18:59 Intake Total 860 Balance 860 Intake: Oral 860 Other: Voiding Method Toilet # Voids 2 1 - Exam GENERAL EXAM: Alert, very pleasant, white male, 6 L of oxygen pulse ox is 93% comfortable in no apparent distress. HEAD: Normocephalic/atraumatic. EYES: Normal reaction of pupils, equal size. Conjunctiva pink, sclera white. NOSE: Clear with pink turbinates. THROAT: No erythema or exudates. NECK: No masses, no JVD, no thyroid enlargement, no adenopathy. CHEST: No chest wall deformity. Symmetrical expansion. LUNGS: Equal air entry with crackles ABDOMEN: Soft, nontender. No hepatosplenomegaly, normal bowel sounds, no guardi ng or rigidity. EXTREMITIES: No clubbing, no edema, no cyanosis, 2+ pulses and upper and lower extremities. MUSCULOSKELETAL: Muscle strength and tone normal. SPINE: No scoliosis or deformity SKIN: No rashes CENTRAL NERVOUS SYSTEM: Alert and oriented -3. No focal deficits, tone is normal in all 4 extremities. PSYCHIATRIC: Alert and oriented -3. Appropriate affect. Intact judgment and insight. - Labs CBC & Chem 7: 10/26/21 06:19 10/26/21 06:19 Assessment and Plan Plan: Assessment: #1. Acute hypoxic respiratory failure related to acute COVID-19 related pneumonia, patient presented with 7 day history of symptoms and was progressively getting worse. Patient was started on Remdesivir and Decadron, he is doing well, remains stable, he is currently down to 6 L of oxygen per high flow nasal cannula. #2. Shortness of breath, cough, exertional dyspnea related to the above #3. Hypovolemic hyponatremia, improved #4. History of coronary artery disease currently inactive #5. Hyperlipidemia #6. Increased inflammatory markers, improving Plan: Patient completed his Remdesivir treatment today Clinically patient has remained stable, no worsening dyspnea, currently down to 6 L, maintaining stable O2 saturations Denies any specific complaints, no worsening dyspnea, no cough, no fever or chills Inflammatory markers are improving Once FiO2 down to 5 L unless we will consider the patient for discharge home I performed a history & physical examination of the patient and discussed their management with my nurse practitioner, Ingrid Oscar. I reviewed the nurse practitioner's note and agree with the documented findings and plan of care. Lung sounds are positive for dim breath sounds throughout the lung meadows. The findings and the impression was discussed with the patient. I attest to the documentation by the nurse practitioner. Time with Patient: Less than 30
--- NOTE | 2021-10-27 17:40 | P.PN ---
Subjective Progress Note Date: 10/27/21 Chris Story is a 61-year-old male hospitalized for COVID 19 related pneumonia. The patient initially developed symptoms of URI and he lost his smell approximately a week ago. He went to an urgent care any tested positive. His symptoms progressively got worse especially the respiratory symptoms and the patient was found to be hypoxic in the emergency department with an initial pulse ox in the 80s. He was placed on oxygen. This is vaccinated individual. At the same time, the patient was complaining of generalized weakness and fatigue and myalgias and tiredness and diminished appetite. In the emergency, the patient's vitals were stable. He was hypoxic. He was placed on oxygen. The blood work showed a sodium level of 128, serum bicarb was 20, chloride was 99, creatinine was 0.8, glucose was 138, illness count is 10.4, hemoglobin is at 15.5, his electrolytes showed a potassium level of 3.5, calcium was 8.0, his d- dimer was 0.8, inflammatory markers are still pending for now. Chest x-ray revealed bilateral pulmonary infiltrates consistent with COVID 19 infection. The patient is currently on IV fluids of normal saline at the rate of 75 mL's an hour, IV Decadron and subcu Lovenox. On 10/26/2021 patient was seen and examined on the medical floor, he is alert and oriented 3 in no apparent distress, he is complaining of cough and shortness of breath with activity otherwise he denies any complaints, there is no fever or chills no headache or dizziness no chest pain no nausea or vomiting no abdominal pain no diarrhea no blood in the stools no burning with urination no frequency or urgency and no hematuria. he is still maintained on oxygen at 6 L via nasal cannula, he is receiving Remdesevir, IV Decadron and subcu Lovenox On 10/27/2021 patient was seen and examined on the medical floor, he is alert and oriented 3 in no apparent distress, patient is feeling better currently he is maintained on oxygen 7 L via nasal cannula his pulse ox is 91% , he is complaining of cough and shortness of breath with activity otherwise he denies any complaints, there is no fever or chills no headache or dizziness no chest pain no nausea or vomiting no abdominal pain no diarrhea no blood in the stools no burning with urination no frequency or urgency and no hematuria. he is still maintained on oxygen at 7 L via nasal cannula, he finished course of Remdesevir, he is maintained on IV Decadron and subcu Lovenox Objective - Vital Signs Vital signs: Vital Signs Temp 97.6 F 10/27/21 17:10 Pulse 77 10/27/21 17:10 Resp 20 10/27/21 17:10 BP 149/96 10/27/21 17:10 Pulse Ox 95 10/27/21 17:10 Intake & Output 10/26/21 10/27/21 10/27/21 18:59 06:59 18:59 Intake Total 860 Balance 860 Intake: Oral 860 Other: Voiding Method Toilet # Voids 2 1 - Exam In general patient is alert and oriented x 3 in no distress HEENT head normocephalic and atraumatic Neck is supple no JVD no goiter no lymphadenopathy no carotid bruit Chest examination crackles in both lung meadows with wheezing Cardiac exam reveals regular heart sounds S1 and S2 no gallops no murmurs Abdomen is soft nontender no organomegaly with normal bowel sounds Extremity exam reveals no edema no cyanosis or clubbing Neurological examination reveals no gross focal deficits - Labs CBC & Chem 7: 10/26/21 06:19 10/26/21 06:19 Assessment and Plan Plan: 1. Acute hypoxic respiratory failure secondary to Covid 19 pneumonia, continue with Decadron, Covid vitamin supplementation. Patient is on Remdesivir 2. Covid 19 infection 3. Hypovolemic hyponatremia: Continue with IV fluids 4. Underlying history of Coronary artery disease 5. Elevated liver enzymes secondary to Covid 19 6. Underlying history of Hypertension Medications and labs were reviewed Continue was current management Patient is finishing course Remdesevir, possible discharge to home in the next 1-2 days Patient will need oxygen at home
[2021-10-27] MEDS: atenoloL 25 MG TAB PO SCH (20:07)
[2021-10-27] MEDS: ATORVASTATIN 40 MG TAB PO SCH (20:07)
[2021-10-27] MEDS: ASPIRIN 81 MG PO SCH (20:07)
[2021-10-27] MEDS: MULTIVITAMINS, THERA 1 EACH TAB PO SCH (20:07)
[2021-10-28] MEDS: SODIUM CHLORIDE 0.9% 1,000 ML IV SCH (03:13)
[2021-10-28] MEDS: CHOLECALCIFEROL 25 MCG (1000 IU) TABLET PO SCH (07:55)
[2021-10-28] MEDS: ENOXAPARIN 40 MG/0.4 ML SYRINGE SQ SCH (07:55)
[2021-10-28] MEDS: dexAMETHasone 2 MG TAB PO SCH (07:55)
[2021-10-28] MEDS: ASCORBIC ACID 500 MG TAB PO SCH (07:56)
[2021-10-28] MEDS: ZINC SULFATE 220 MG CAP PO SCH (07:56)
[2021-10-28 09:42] LABS: Basophils # (A) 0.09 X 10*3/uL (0.00-0.10); Basophils % (A) 0.7 %; Eosinophils % (A) 0.8 %; HCT 42.8 % (39.6-50.0); HGB 13.7 g/dL (13.0-17.0); Lymphocytes # (A) 3.77 X 10*3/uL (0.90-5.00); Lymphocytes % (A) 29.2 %; MCH 28.2 pg (27.0-32.0); MCV 88.2 fL (80.0-97.0); Monocytes # (A) 0.55 X 10*3/uL (0.20-1.00); Monocytes % (A) 4.3 %; Neutrophils # (A) 7.73 X 10*3/uL (1.80-7.70); Platelet Count 455 X 10*3/uL (140-440); RBC 4.85 X 10*6/uL (4.40-5.60); WBC 12.89 X 10*3/uL (4.50-10.00)
[2021-10-28 10:32] VITALS: TEMP 97.5
[2021-10-28 12:01] LABS: African American GFR (CKD) 114.2 (60.0-200.0); Albumin 3.2 g/dL (3.8-4.9); Albumin/Globulin Ratio 1.2 (1.60-3.17); Anion Gap 15.1 mmol/L (10.00-18.00); BUN/Creat Ratio 24.97 Ratio (12.00-20.00); Blood Urea Nitrogen 19.6 mg/dL (9.0-27.0); Calcium 8.6 mg/dL (8.7-10.3); Globulin 2.6 g/dL (1.6-3.3); Non-African American GFR(CKD) 98.5 (60.0-200.0); Potassium 4.8 mmol/L (3.5-5.5); Total Bilirubin 0.6 mg/dL (0.30-1.20); Total Protein 5.8 g/dL (6.2-8.2)
--- NOTE | 2021-10-28 13:08 | P.DS ---
Providers Date of admission: 10/22/21 17:20 Expected date of discharge: 10/28/21 Attending physician: Asif Nguyen Consults: 10/22/21 17:20 Consult Physician Routine Consulting Provider: Rajat Smyth Consult Reason/Comments: covid 19 Do you want consulting provider notified?: Yes Primary care physician: Collin Cruz [facility] Course: Discharge diagnosis 1. Acute hypoxic respiratory failure secondary to Covid 19 pneumonia, continue with Decadron, Covid vitamin supplementation. Patient is on Remdesivir 2. Covid 19 infection 3. Hypovolemic hyponatremia: Continue with IV fluids 4. Underlying history of Coronary artery disease 5. Elevated liver enzymes secondary to Covid 19 6. Underlying history of Hypertension Medications and labs were reviewed Continue was current management Patient is finishing course Remdesevir, possible discharge to home in the next 1-2 days Patient will need oxygen at home Hospital course Chris Story is a 61-year-old male hospitalized for COVID 19 related pneumonia. The patient initially developed symptoms of URI and he lost his smell approximately a week ago. He went to an urgent care any tested positive. His symptoms progressively got worse especially the respiratory symptoms and the patient was found to be hypoxic in the emergency department with an initial pulse ox in the 80s. He was placed on oxygen. This is vaccinated individual. At the same time, the patient was complaining of generalized weakness and fatigue and myalgias and tiredness and diminished appetite. In the emergency, the patient's vitals were stable. He was hypoxic. He was placed on oxygen. The blood work showed a sodium level of 128, serum bicarb was 20, chloride was 99, creatinine was 0.8, glucose was 138, illness count is 10.4, hemoglobin is at 15.5, his electrolytes showed a potassium level of 3.5, calcium was 8.0, his d- dimer was 0.8, inflammatory markers are still pending for now. Chest x-ray revealed bilateral pulmonary infiltrates consistent with COVID 19 infection. The patient is currently on IV fluids of normal saline at the rate of 75 mL's an hour, IV Decadron and subcu Lovenox. On 10/26/2021 patient was seen and examined on the medical floor, he is alert and oriented 3 in no apparent distress, he is complaining of cough and shortness of breath with activity otherwise he denies any complaints, there is no fever or chills no headache or dizziness no chest pain no nausea or vomiting no abdominal pain no diarrhea no blood in the stools no burning with urination no frequency or urgency and no hematuria. he is still maintained on oxygen at 6 L via nasal cannula, he is receiving Remdesevir, IV Decadron and subcu Lovenox On 10/27/2021 patient was seen and examined on the medical floor, he is alert and oriented 3 in no apparent distress, patient is feeling better currently he is maintained on oxygen 7 L via nasal cannula his pulse ox is 91% , he is co mplaining of cough and shortness of breath with activity otherwise he denies any complaints, there is no fever or chills no headache or dizziness no chest pain no nausea or vomiting no abdominal pain no diarrhea no blood in the stools no burning with urination no frequency or urgency and no hematuria. he is still maintained on oxygen at 7 L via nasal cannula, he finished course of Remdesevir, he is maintained on IV Decadron and subcu Lovenox On 10/28/2023 1 patient is alert and oriented 3. Discussed case with pulmonary disease. Patient has been cleared for discharge. Patient will be DC'd on Decadron for 10 more days, zinc, vitamin C and vitamin D. Patient also will be DC'd with home oxygen per pulmonary patient to follow-up with pulmonary and PCP upon discharge. Patient Condition at Discharge: Stable Plan - Discharge Summary Discharge Rx Participant: No New Discharge Prescriptions: New Cholecalciferol [Vitamin D3 (25 Mcg = 1000 Iu)] 25 mcg PO DAILY 14 Days #14 tablet dexAMETHasone ORAL [Hexadrol] 6 mg PO DAILY 10 Days #10 tab Zinc Sulfate [Orazinc] 220 mg PO DAILY 14 Days #14 cap Ascorbic Acid [Vitamin C] 500 mg PO BID 14 Days #28 tab Continue atenoloL [Tenormin] 25 mg PO HS Aspirin EC [Ecotrin Low Dose] 81 mg PO HS Rosuvastatin [Crestor] 20 mg PO HS Multivitamins, Thera [Multivitamin (formulary)] 1 tab PO HS Discharge Medication List Aspirin EC [Ecotrin Low Dose] 81 mg PO HS 10/22/21 [History] Multivitamins, Thera [Multivitamin (formulary)] 1 tab PO HS 10/22/21 [History] Rosuvastatin [Crestor] 20 mg PO HS 10/22/21 [History] atenoloL [Tenormin] 25 mg PO HS 10/22/21 [History] Ascorbic Acid [Vitamin C] 500 mg PO BID 14 Days #28 tab 10/28/21 [Rx] Cholecalciferol [Vitamin D3 (25 Mcg = 1000 Iu)] 25 mcg PO DAILY 14 Days #14 tablet 10/28/21 [Rx] Zinc Sulfate [Orazinc] 220 mg PO DAILY 14 Days #14 cap 10/28/21 [Rx] dexAMETHasone ORAL [Hexadrol] 6 mg PO DAILY 10 Days #10 tab 10/28/21 [Rx] Follow up Appointment(s)/Referral(s): [facility] [NON-STAFF] - As Needed (oxygen) Collin Hughes MD [Primary Care Provider] - 1-2 days Rajat Smyth MD [STAFF PHYSICIAN] - 1 Week Discharge Disposition: HOME SELF-CARE
--- NOTE | 2021-10-28 13:11 | P.PN ---
Subjective Progress Note Date: 10/28/21 Principal diagnosis: Dyspnea On 10/26/2021 patient seen in follow-up on medical surgical floor, he looks very comfortable, no worsening dyspnea, he is currently on 7 L of oxygen pulse ox is 92-93%, he is walking in the room, tolerating activity very well, he is on Remdesivir day 5 of treatment, he remains on Decadron 6 program daily, Lovenox 40 mg twice daily, and COVID-19 multivitamins. Today's labs have been reviewed, white blood cell count is 11.9, hemoglobin is 13, his d-dimer slightly improved and is down to 0.89, electrolytes and renal profile on unremarkable, his LDH is significantly improved and is down to 434, and CRP is down to 2.6. No acute events overnight, no nausea vomiting or diarrhea, tolerating oral intake, no abdominal pain. Chest x-ray today shows mild cardiomegaly with bilateral multifocal peripheral mid to lower lung opacities consistent with COVID-19 infection without significant change from most recent chest x-ray. On today's evaluation on 10/27/2021 patient seen in follow-up on medical surgical floor, earlier today his sats were 93% on 7 L, patient is breathing very comfortably, and FiO2 has been cut back to 6 L, patient is breathing comfortably, denies any specific complaints, no worsening dyspnea, lung sounds still revealed coarse bilateral crackles, last chest x-ray from yesterday showed mild cardiomegaly and bilateral multifocal peripheral lung opacities consistent with patient's history of COVID-19 pneumonia. Labs have been reviewed showing white blood cell count of 11.9, hemoglobin of 13, d-dimer is 0.89, electrolytes and renal profile were unremarkable, LDH and CRP were improving on yesterday's labs. Patient completed his Remdesivir today, he remains on Decadron and prophylactic Lovenox, clinically has been stable, tolerating intubation about the room. No acute events overnight. On 10/28/2021 patient seen in follow-up on medical surgical floor, he has remained stable since admission, and his oxygen requirements have improved, he is currently on 4 L of oxygen pulse ox is 91%, breathing quite comfortably, he finishes Remdesivir the day before yesterday, he continues on Decadron 6 mg daily, prophylactic Lovenox, COVID-19 vitamins. Clinically patient has been very stable, breathing comfortably, no cough, he is been tolerating ambulation. No nausea vomiting or diarrhea, no abdominal pain, today's labs have been reviewed, orbital, 12.8, hemoglobin is 13.7, electrolytes and renal profile are unremarkable, his inflammatory markers have significantly improved on yesterday's labs compared admission levels. His LDH was down to 434, CRP was 2.6. Objective - Vital Signs Vital signs: Vital Signs Temp 97.5 F L 10/28/21 10:31 Pulse 79 10/28/21 10:31 Resp 17 10/28/21 10:31 BP 128/81 10/28/21 10:31 Pulse Ox 91 L 10/28/21 10:31 Intake & Output 10/27/21 10/28/21 10/28/21 18:59 06:59 18:59 Other: # Voids 6 1 - Exam GENERAL EXAM: Alert, very pleasant, white male, 4 L of oxygen pulse ox is 93% comfortable in no apparent distress. HEAD: Normocephalic/atraumatic. EYES: Normal reaction of pupils, equal size. Conjunctiva pink, sclera white. NOSE: Clear with pink turbinates. THROAT: No erythema or exudates. NECK: No masses, no JVD, no thyroid enlargement, no adenopathy. CHEST: No chest wall deformity. Symmetrical expansion. LUNGS: Equal air entry with crackles ABDOMEN: Soft, nontender. No hepatosplenomegaly, normal bowel sounds, no guarding or rigidity. EXTREMITIES: No clubbing, no edema, no cyanosis, 2+ pulses and upper and lower extremities. MUSCULOSKELETAL: Muscle strength and tone normal. SPINE: No scoliosis or deformity SKIN: No rashes CENTRAL NERVOUS SYSTEM: Alert and oriented -3. No focal deficits, tone is normal in all 4 extremities. PSYCHIATRIC: Alert and oriented -3. Appropriate affect. Intact judgment and insight. - Labs CBC & Chem 7: 10/28/21 06:26 10/28/21 06:26 Labs: Abnormal Lab Results - Last 24 Hours (Table) 10/28/21 10/28/21 Range/Units 06:26 06:26 WBC 12.89 H (4.50-10.00) X 10*3/uL Plt Count 455 H (140-440) X 10*3/uL Immature Gran # 0.65 H (0.00-0.04) X 10*3/uL Neutrophils # 7.73 H (1.80-7.70) X 10*3/uL BUN/Creatinine Ratio 24.97 H (12.00-20.00) Ratio Glucose 144 H (70-110) mg/dL Calcium 8.6 L (8.7-10.3) mg/dL ALT 92 H (10-49) U/L Total Protein 5.8 L (6.2-8.2) g/dL Albumin 3.2 L (3.8-4.9) g/dL Albumin/Globulin Ratio 1.20 L (1.60-3.17) g/dL Assessment and Plan Plan: Assessment: #1. Acute hypoxic respiratory failure related to acute COVID-19 related pneumonia, patient presented with 7 day history of symptoms and was pr ogressively getting worse. Patient was started on Remdesivir and Decadron, he is doing well, remains stable, he is currently down to 6 L of oxygen per high flow nasal cannula. #2. Shortness of breath, cough, exertional dyspnea related to the above, improved #3. Hypovolemic hyponatremia, improved #4. History of coronary artery disease currently inactive #5. Hyperlipidemia #6. Increased inflammatory markers, improving Plan: Patient completed his Remdesivir course Clinically patient has remained stable, with no worsening dyspnea or hypoxia Oxygenation has improved and his FiO2 requirements are down to 4 L, and his maintaining O2 saturations above 90% No fever or chills, inflammatory markers have improved Tolerating ambulation Patient is stable for discharge home today on home oxygen at 4 L/m He can finish outpatient course of Decadron for a total of 10 days He can continue on COVID-19 vitamins including vitamin C, vitamin D and zinc He is instructed to come back for reevaluation if his symptoms worsen and if there is worsening dyspnea or hypoxia Outpatient follow-up with Dr. Smyth in the office in 2 weeks I performed a history & physical examination of the patient and discussed their management with my nurse practitioner, Ingrid Oscar. I reviewed the nurse practitioner's note and agree with the documented findings and plan of care. Lung sounds are positive for dim breath sounds throughout the lung meadows. The findings and the impression was discussed with the patient. I attest to the documentation by the nurse practitioner. Time with Patient: Less than 30
[2021-10-28 14:21] VITALS: BP 124/83; PULSE 74; RESP 18
[2021-10-28 15:15] VITALS: BMI 29.1
== END 2021-10-28 14:20 | disposition home or self-care (01) | DRG 177 ==
LOC: EC 15:29 → 4SSUR 17:20
PROVIDERS: ADMIT Internal Medicine; ATTEND Internal Medicine
PROC: XW033E5 Introduction of Remdesivir Anti-infective into Peripheral Vein, Percutaneous Approach, New Technology Group 5 (ICD-10-PCS; principal; 2021-10-22)
DX: U07.1 COVID-19 (principal); J12.82 Pneumonia due to coronavirus disease 2019; J96.01 Acute respiratory failure with hypoxia; E87.1 Hypo-osmolality and hyponatremia; I10 Essential (primary) hypertension; E78.5 Hyperlipidemia, unspecified; E86.1 Hypovolemia; I25.10 Atherosclerotic heart disease of native coronary artery without angina pectoris; I25.2 Old myocardial infarction; Z79.899 Other long term (current) drug therapy; Z82.49 Family history of ischemic heart disease and other diseases of the circulatory system; Z95.5 Presence of coronary angioplasty implant and graft; Z79.82 Long term (current) use of aspirin; Z88.0 Allergy status to penicillin; Z91.041 Radiographic dye allergy status
CPT/HCPCS: 36415; 71045; 76705; 80048; 80053; 80074; 83615; 83735; 84145; 85025; 85027; 85379; 85610; 85730; 86140; 87635; 99285

== ENCOUNTER → 2024-10-05 | Outpatient (CLI) | payer BC ==
[2024-10-05 20:40] LABS: ALT 30 U/L (10-49); AST 18 U/L (14-35); Albumin 4.3 g/dL (3.8-4.9); Albumin/Globulin Ratio 1.54 Ratio (1.60-3.17); Alkaline Phosphatase 70 U/L (41-126); BUN/Creat Ratio 18.33 Ratio (12.00-20.00); Blood Urea Nitrogen 16.5 mg/dL (9.0-27.0); Calcium 9.5 mg/dL (8.7-10.3); Carbon Dioxide 24.2 mmol/L (21.6-31.8); Chloride 103 mmol/L (96-109); Chol/HDL Ratio 2.67 Ratio; Globulin 2.8 g/dL (1.6-3.3); Glucose 85 mg/dL (70-110); LDL Cholesterol,Calculated 50.9 mg/dL (0.0-131.0); Potassium 4.9 mmol/L (3.5-5.5); Sodium 140 mmol/L (135-145); Total Bilirubin 0.6 mg/dL (0.3-1.2); Total Protein 7.1 g/dL (6.2-8.2)
== END | disposition home or self-care (01) ==
LOC: LABWHC1 13:08
PROVIDERS: ATTEND Nurse Practitioner Adult Health
DX: I10 Essential (primary) hypertension (principal); E78.2 Mixed hyperlipidemia
CPT/HCPCS: 36415; 80053; 80061